=== PATIENT | male | born 1980 | race African-American/Black ===

== ENCOUNTER 2022-03-24 04:29 | Emergency (ER) | payer BC, OTHER, SELFPAY ==
--- NOTE | ~2022-03-24 | XR_ITS ---
EXAMINATION: XR SHOULDER, LEFT CLINICAL INFORMATION: Pain after seizure COMPARISON: None TECHNIQUE: AP external rotation, Grashey, scapular Y, and axillary views of the left shoulder. FINDINGS: There is no visible acute fracture, dislocation. There is loss of glenohumeral joint space with periarticular spurring. The soft tissues are normal. XR/XR shoulder LT min 2V IMPRESSION: Degenerative arthritic changes left shoulder. No visible fracture or dislocation.
--- NOTE | ~2022-03-24 | CT_ITS ---
EXAMINATION: CT HEAD WITHOUT CONTRAST CLINICAL INFORMATION: New onset seizure today. COMPARISON: None TECHNIQUE: Contiguous axial imaging was performed from the skull base to vertex without intravenous administration of contrast. This CT examination was performed using dose optimization techniques as appropriate, variously including the following: *Automated exposure control *Adjustment of mA and/or kV according to patient size (this includes techniques or standardized protocols for targeted exams where dose is matched to indication/reason for exam; i.e. extremities or head) *Use of iterative reconstruction technique DLP: 1108 mGy-cm FINDINGS: No intracranial hemorrhage, tumors or infarcts are noted. The ventricles and sulci are normal in size and configuration. No focal parenchymal lesions of the brain are noted. No abnormal extra-axial fluid collections identified. The orbits and globes are partially included in the image [id number] and are normal in appearance. No significant opacification of the visualized paranasal sinuses, mastoid air cells and middle ear cavities. CT/CT head/brain wo con IMPRESSION: *No acute intracranial abnormalities.
[2022-03-24 04:35] VITALS: BP 100/56; BP 115/70; PULSE 80; PULSE 81; RESP 16; TEMP 36.9; O2SAT 98; O2SAT 99; BMI 30.4
--- NOTE | 2022-03-24 04:37 | ECG_ITS ---
Test Reason : SEIZURES Blood Pressure : / mmHG Vent. Rate : 079 BPM Atrial Rate : 079 BPM P-R Int : 156 ms QRS Dur : 096 ms QT Int : 398 ms P-R-T Axes : 081 048 019 degrees QTc Int : 456 ms Normal sinus rhythm Possible Left atrial enlargement Borderline ECG No previous ECGs available Referred By: Ashley Benjamin Electronically Signed By:LIVIA SORENSEN
[2022-03-24] MEDS: 0.9 % Sodium Chloride 1,000 ML 999 ML IVCONT (04:48)
[2022-03-24 05:06] LABS: Basophils Percent Auto 0.2 % (0-2); Eosinophils Percent Auto 0.1 % (0-4); Hematocrit 42.2 % (42.0-52.0); Hemoglobin 13.8 g/dl (14.0-18.0); Imm Gran Abs Auto 0.07 X10*3/uL (0.00-0.03); Imm Gran Pct Auto 0.8 % (0.0-0.4); Lymphocytes Absolute Auto 0.6 X10*3/uL (1.2-4.9); Lymphocytes Percent Auto 7.4 % (20-40); MANUAL DIFF FLAG NO; Mean Corpuscular HGB Conc 32.7 g/dl (31.0-36.0); Mean Corpuscular Hemoglobin 27.9 pg (27.0-33.0); Mean Corpuscular Volume 85.4 fL (80.0-98.0); Mean Platelet Volume 10.1 fL (9.4-12.4); Monocytes Absolute Auto 0.6 X10*3/uL (0.1-1.2); Monocytes Percent Auto 6.8 % (2-11); Neutrophils Absolute Auto 7.1 x10*3/uL (2.0-8.3); Neutrophils Percent Auto 84.7 % (45-73); Platelet Count 223 X10*3/uL (160-400); Red Blood Count 4.94 X10*6/uL (4.60-5.80); Red Cell Distribution Width 13.2 % (11.0-16.0); White Blood Count 8.4 X10*3/uL (4.8-10.8)
--- NOTE | 2022-03-24 05:08 | ED.NEUROSD ---
HPI - Neuro Symptoms/Deficit General Chief Complaint: Seizure Stated Complaint: seizure Time Seen by Provider: 03/24/22 04:33 Source: EMS Mode of arrival: EMS Limitations: altered mental status History of Present Illness HPI Narrative: Patient comes to the emergency room complaining of a seizure. According to EMS, the reported that the patient had a seizure lasting approximately 5 minutes. The reported that this is the 2nd seizure the patient has ever had, patient is not on any seizure medications. When EMS arrived, patient was postictal, very combative. Patient was given 2 mg of Versed intranasal. EMS reports that they attempted giving 4 mg, but the patient was too combative and push the paramedics hand away, likely only 2 mg were actually administered. On arrival, patient is calm, cooperative, still a bit foggy/postictal, has no complaints. Related Data Previous Rx's Medication Instructions Recorded levetiracetam 500 mg tablet 500 mg PO BID #60 tab 03/24/22 (Keppra) Allergies Allergy/AdvReac Type Severity Reaction Status Date / Time No Known Allergies Allergy Verified 03/24/22 04:37 Review of Systems Review of Systems: Constitutional : No Weight loss, No Fever, No Chills, No Night Sweats, No Fatigue, No Malaise, complaining of feeling foggy ENT/Mouth : No Hearing loss, No Ear Pain, No Nasal Congestion, No Sinus Pain, No Hoarseness, No sore throat, No Rhinorrhea, No Swallowing Difficulty Eyes: No Eye Pain, No Swelling, No Redness, No Foreign Body, No Discharge, No Vision Changes Cardiovascular : No Chest Pain, No SOB, No Dyspnea on Exertion, No Orthopnea, No Edema, No Palpitations Respiratory : No Cough, No Sputum, No Wheezing, No Smoke Exposure, No Dyspnea Gastrointestinal : No Nausea, No Vomiting, No Diarrhea, No Constipation, No abdominal Pain, No Hematochezia, No Melena Genitourinary : no irregular bleeding, No Dysuria, No Urinary Frequency, No Hematuria, No Urinary Incontinence, No Urgency, No Flank Pain, No Urinary Flow Changes, No Hesitancy Musculoskeletal : No joint pain, No Myalgias, No Joint Swelling Skin : No Skin Lesions, No rash Neuro : No Weakness, No Numbness, No Paresthesias, No Loss of Consciousness, No Dizziness, No Headache Psych : No Anxiety/Panic, No Depression, No SI/HI/AH/VH, No Social Issues, Heme/Lymph: No Bruising, No Bleeding,No Lymphadenopathy Endocrine : No Polyuria, No Polydipsia, No Temperature Intolerance [facility] Past Medical History Medical History (Updated 03/24/22 @ 06:08 by Ashley Benjamin MD) Seizures Social History Social History Advance Directives: No Physical Exam Vital Signs: Vital Signs: Last Vital Signs Temp 98.4 F 03/24/22 04:35 Pulse 72 03/24/22 06:45 Resp 12 03/24/22 06:45 BP 109/61 03/24/22 06:45 Pulse Ox 99 03/24/22 06:45 BMI result Body Mass Index 30.4 Const: Other: Appearance: Alert. Oriented X3. No acute distress. Still having trouble remembering things, slightly postictal Eyes: Pupils equal, round and reactive to light. ENT: Pharynx normal. Neck: Normal inspection. Neck supple. No lymph nodes noted. No crepitus CVS: Normal heart rate and rhythm. Pulses normal. Normal S1 and S2 Respiratory: No respiratory distress. Breath sounds normal. No Wheezing. No rales Abdomen: Soft and nontender. No rigidity. No distention. Skin: Skin warm and dry. Normal skin color. Normal skin turgor. Extremities: No lower extremity edema. No Lacerations. No Rash Neuro: Oriented X 3. No motor deficit. No sensory deficit. Moving all extremities. No slurred speech. CN 2 through 12 grossly intact Psych: calm, cooperative, normal affect Course Course Course Narrative: Prior to arrival, patient received 2 mg of intranasal Versed. Here in the emergency room patient is receiving IV fluids, loading dose of [address] Head CT and labs pending. Patient's lactic acid is 5, likely elevated secondary to a seizure. Sepsis not suspected. Patient getting IV fluids. Patient's is at bedside now. She explains that on 11/07/2021 patient had his 1st seizure. Patient was not started on medication. She explains that about a week ago she had an EEG done at [facility], they do not know what the results are. This is The 2nd time the patient has seizures. Patient will be started on Keppra p.o.. Patient instructed to follow-up with Neurology. Please follow-up shoulder x-ray of the left side. Sign-out given to Dr. Villalobos [facility] - Neuro Symptoms/Deficit Lab Data Result diagrams: 03/24/22 04:57 03/24/22 04:57 Labs: Lab Results 03/24/22 03/24/22 03/24/22 Range/Units 04:57 04:57 04:57 WBC 8.4 (4.8-10.8) X10*3/uL RBC 4.94 (4.60-5.80) X10*6/uL Hgb 13.8 L (14.0-18.0) g/dl Hct 42.2 (42.0-52.0) % MCV 85.4 (80.0-98.0) fL MCH 27.9 (27.0-33.0) pg MCHC 32.7 (31.0-36.0) g/dl RDW 13.2 (11.0-16.0) % Plt Count 223 (160-400) X10*3/uL MPV 10.1 (9.4-12.4) fL Immature Gran % (Auto) 0.8 H (0.0-0.4) % Neut % (Auto) 84.7 H (45-73) % Lymph % (Auto) 7.4 L (20-40) % [place] % (Auto) 6.8 (2-11) % Eos % (Auto) 0.1 (0-4) % Baso % (Auto) 0.2 (0-2) % Lymph # (Auto) 0.6 L (1.2-4.9) X10*3/uL [place] # (Auto) 0.6 (0.1-1.2) X10*3/uL Eos # (Auto) 0.0 (0.0-0.4) X10*3/uL Baso # (Auto) 0.0 (0.0-0.2) X10*3/uL Abs Immat Gran (auto) 0.07 H (0.00-0.03) X10*3/uL Absolute Neuts (auto) 7.1 (2.0-8.3) x10*3/uL Absolute Nucleated RBC 0.000 (0.0-0.012) X10*3/uL Nucleated RBC % (auto) 0.0 (0.0-0.2) /100WBC Sodium 134 L (135-145) mmol/L Potassium 4.2 (3.3-5.1) mmol/L Chloride 101 (96-108) mmol/L Carbon Dioxide 22 (22-29) mmol/L Anion Gap 15 (12-20) BUN 12 (9-16) mg/dL Creatinine 1.11 (0.5-1.4) mg/dL Estim Creat Clear Calc 95.9 Estimated GFR > 60 Random Glucose 103 (60-115) mg/dL Lactic Acid 5.2 H* (0.5-2.0) mmol/L Calcium 9.1 (8.4-10.2) mg/dL Total Bilirubin 0.6 (0.0-1.0) mg/dL Direct Bilirubin 0.2 (0.0-0.5) mg/dL AST 24 (5-37) U/L ALT 24 (0-40) U/L Alkaline Phosphatase 55 (39-117) U/L Total Protein 7.0 (6.5-8.0) g/dL Albumin 4.3 (3.5-5.0) g/dL Ethyl Alcohol mg/dL COVID-19 ([facility]) (Negative) COVID-19 Clin Com 03/24/22 03/24/22 Range/Units 04:57 04:57 WBC (4.8-10.8) X10*3/uL RBC (4.60-5.80) X10*6/uL Hgb (14.0-18.0) g/dl Hct (42.0-52.0) % MCV (80.0-98.0) fL MCH (27.0-33.0) pg MCHC (31.0-36.0) g/dl RDW (11.0-16.0) % Plt Count (160-400) X10*3/uL MPV (9.4-12.4) fL Immature Gran % (Auto) (0.0-0.4) % Neut % (Auto) (45-73) % Lymph % (Auto) (20-40) % [place] % (Auto) (2-11) % Eos % (Auto) (0-4) % Baso % (Auto) (0-2) % Lymph # (Auto) (1.2-4.9) X10*3/uL [place] # (Auto) (0.1-1.2) X10*3/uL Eos # (Auto) (0.0-0.4) X10*3/uL Baso # (Auto) (0.0-0.2) X10*3/uL Abs Immat Gran (auto) (0.00-0.03) X10*3/uL Absolute Neuts (auto) (2.0-8.3) x10*3/uL Absolute Nucleated RBC (0.0-0.012) X10*3/uL Nucleated RBC % (auto) (0.0-0.2) /100WBC Sodium (135-145) mmol/L Potassium (3.3-5.1) mmol/L Chloride (96-108) mmol/L Carbon Dioxide (22-29) mmol/L Anion Gap (12-20) BUN (9-16) mg/dL Creatinine (0.5-1.4) mg/dL Estim Creat Clear Calc Estimated GFR Random Glucose (60-115) mg/dL Lactic Acid (0.5-2.0) mmol/L Calcium (8.4-10.2) mg/dL Total Bilirubin (0.0-1.0) mg/dL Direct Bilirubin (0.0-0.5) mg/dL AST (5-37) U/L ALT (0-40) U/L Alkaline Phosphatase (39-117) U/L Total Protein (6.5-8.0) g/dL Albumin (3.5-5.0) g/dL Ethyl Alcohol < 10 mg/dL COVID-19 ([facility]) Negative (Negative) COVID-19 Clin Com See Note Imaging Data CT scan - head: Radiologist's impression: FINDINGS: No intracranial hemorrhage, tumors or infarcts are noted. The ventricles and sulci are normal in size and configuration. No focal parenchymal lesions of the brain are noted. No abnormal extra-axial fluid collections identified. The orbits and globes are partially included in the image [id number] and are normal in appearance. No significant opacification of the visualized paranasal sinuses, mastoid air cells and middle ear cavities. CT/CT head/brain wo con IMPRESSION: *No acute intracranial abnormalities. Discharge Plan Discharge Clinical Impression: Seizures Patient Disposition: Home, Self-Care Instructions: Generalized Tonic Clonic Seizures (ED) Additional Instructions: Do not drive or operate machinery for the next 6 months, or otherwise cleared by Neurology. Please follow-up with your primary care physician tomorrow. If you have any worsening or new symptoms, please return to the emergency room or call 911 Prescriptions: New levetiracetam [Keppra] 500 mg tablet 500 mg PO BID Qty: 60 0RF Referrals: Jose Gerber MD [Physician] - 3 days
[2022-03-24 05:19] LABS: COVID-19 Test Negative (Negative)
[2022-03-24 05:20] LABS: Ethanol < 10 mg/dL; Lactic Acid 5.2 mmol/L (0.5-2.0)
[2022-03-24 05:22] LABS: Alanine Aminotransferase 24 U/L (0-40); Albumin Level 4.3 g/dL (3.5-5.0); Alkaline Phosphatase 55 U/L (39-117); Anion Gap 15 (12-20); Aspartate Amino Transferase 24 U/L (5-37); Bilirubin Direct 0.2 mg/dL (0.0-0.5); Bilirubin Total 0.6 mg/dL (0.0-1.0); Blood Urea Nitrogen 12 mg/dL (9-16); Calcium 9.1 mg/dL (8.4-10.2); Carbon Dioxide 22 mmol/L (22-29); Chloride 101 mmol/L (96-108); Creatinine Clr Calc Pharmacy 95.9; Estimated Glomerular Filt Rate > 60; Glucose Random 103 mg/dL (60-115); Potassium 4.2 mmol/L (3.3-5.1); Sodium 134 mmol/L (135-145)
[2022-03-24] MEDS: levETIRAcetam in NaCl (iso-os) 1,000 MG/100 ML PIGGYBACK 400 MG IV (05:39)
[2022-03-24 06:45] VITALS: BP 109/61; PULSE 72; RESP 12; O2SAT 99
[2022-03-24 07:05] LABS: Reflex Lactate? Lactic Acid Added
== END 2022-03-24 07:30 | disposition home or self-care (01) ==
PROVIDERS: Emergency Medicine; Emergency Provider Emergency Medicine; PCP Internal Medicine
DX: R56.9 Unspecified convulsions (principal); M25.512 Pain in left shoulder; Z20.822 Contact with and (suspected) exposure to COVID-19; Z79.899 Other long term (current) drug therapy
CPT/HCPCS: 36415; 70450; 73030; 80048; 80076; 82077; 83605; 85025; 87635; 93005; 96361; 96374; 99284; J1953

== ENCOUNTER 2024-07-09 15:58 | Outpatient (AMB) | payer OTHER, SELFPAY ==
--- NOTE | 2024-07-09 16:16 | AM.OFFWIN_ITS ---
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 While every effort has been made to ensure accuracy, insulation and flooring assembler errors may have been included. The patient is a 43 year old male who presents to the clinic today with left wrist laceration occurred today. [facility] Medical History (Updated 03/24/22 @ 06:08 by Ashley Benjamin MD) Seizures Review of Systems Const All systems reviewed & are unremarkable except as noted in HPI and below Physical Exam Skin Other: Linear laceration to left forearm, approximately 3 cm in length. Assessment & Plan Assessment & Plan (1) Laceration of arm: Code(s): S41.119A - Laceration without foreign body of unspecified upper arm, initial encounter Qualifiers: Encounter type: initial encounter Laterality: left Qualified Code(s): S41.112A - Laceration without foreign body of left upper arm, initial encounter Plan: Patient requires sutures to repair laceration, unfortunately this provider is unable to perform sutures at this time due to skills check off. Pressure dressing applied to the forearm, patient advised to go to emergency room for suturing or alternate urgent care. Patient pulled up alternate urgent Care on his phone while in the office, and located at a place to go. Plan See above for full details and plan. Coding Level of Care Code Est Pt Level 3 (88018) Diagnoses Laceration of left upper extremity, initial encounter S41.112A Encounter type: initial encounter Laterality: left
== END 2024-07-09 16:10 | disposition home or self-care (01) ==
LOC: HO.HMGWI 15:58
PROVIDERS: PCP Internal Medicine
DX: S41.112A Laceration without foreign body of left upper arm, initial encounter (principal)
CPT/HCPCS: 99213

== ENCOUNTER 2025-03-20 14:02 | Outpatient (AMB) | payer OTHER, SELFPAY ==
[2025-03-20 14:26] VITALS: BP 96/62; PULSE 50; RESP 18; TEMP 36.9; O2SAT 98; BMI 27.1
--- NOTE | 2025-03-20 14:26 | MHC.PC.OV ---
Vital Signs 03/20/25 14:26 Height 5 ft 8 in Weight 178 lb 3.2 oz BMI 27.1 BP 96/62 Blood Pressure Location Lt brachial Position Sitting Respiration 18 Pulse 50 Pulse Source Pulse Oximeter Temp 98.5 F Temp Source Oral Pulse Oximetry (%) 98 Oxygen Delivery Method Room Air Intake Visit Reasons: establish care Intake Note: Patient is a new patient here to establish care. Transferring care from Dr. Rudd at [facility] in [place], [place]. Medical records have been requested and have been received. Warrant Server Required: No Accompanied by: Self / Same As Patient Allergies No Known Allergies Allergy (Verified 03/20/25 14:53) Tobacco use date assessed: 03/20/25 Dental Screening Dental Screen Date: 03/20/25 Did you have a dental visit in the last 12 months?: Yes Did you have a dental problem in the last 6 months where you did not have access to dental care?: No Was dental information given to patient?: Patient has dentist HPI establish care HPI Details Previous PCP: Last visit: over 2 years Last PE: same Specialist: neurologist, Cardiology ([facility])- after one of the seizures, his heart rate was high, October,, he has arrhythmia. His heart rate was low. Past medical history: Back Rash-hyperpigmentation/scaly, Abscess grown on the liver after the apendix was removed. It came back and he had to be hospitalized and surgery was performed. Appendix and the first abscess was 2015, the second one 2016. porferia-in stool. Medications: Family HX: Problem: The patient is a 44-year-old male presenting with the primary reason of establishing care and evaluating multiple chronic health conditions. He describes experiencing generalized tonic-clonic seizures that commenced in July 2023 and have occurred subsequently every two months. These events included a notably high glucose level during a seizure in September 2023 and bradycardia observed on November 14, 2023. He has a significant history of liver abscesses post-appendectomy, first occurring in 2015 and recurred in 2017, both necessitating medical intervention. Dermatological issues include hyperpigmentation and dry, scaly patches on his back, which have not been evaluated by a medical practice assistant. There is a suspicion of porphyria considered due to elevated porphyrin levels noted in genetic and stool testing; however, this was not definitively diagnosed. He has expressed anxiety, manifesting as irritability, and has been prescribed hydroxyzine for symptom management. Discussions regarding his conscripted outcomes of bradycardia during a cardiac evaluation at [facility] resulted in no further follow-up due to patient decision. The patient reports that he say Dr. Moore, who recommended him to Dr. Tim, due to the complexity of his seizures. [place] [facility] [place] [facility] Medical History (Updated 03/22/25 @ 23:26 by TESFAYE Mcdonald) Bradycardia Hx of abdominal abscess Seizures Surgical History Hx of appendectomy Family History Mother Narcolepsy Bipolar disorder Anxiety Difficulty swallowing Esophageal lesion Father No problems noted. 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 1. Little interest or pleasure in doing things: not at all 2. Feeling down, depressed, or hopeless: several days 3. Trouble falling or staying asleep, or sleeping too much: not at all 4. Feeling tired or having little energy: not at all 5. Poor appetite or overeating: not at all 6. Feeling bad about yourself - or that you are a failure or have let yourself or your family down: not at all 7. Trouble concentrating on things, such as reading the newspaper or watching television: not at all 8. Moving or speaking so slowly that other people could have noticed. Or the opposite - being so fidgety or restless that you have been moving around a lot more than usual: not at all 9. Thoughts that you would be better off or of hurting yourself in some way: not at all Total score: 1 Depression Screening Interpretation: Negative Depression Screening Done: Yes 92359 - PHQ-9 Billing: Yes Source: Developed by Drs. Edu Thorne, Cynthia Das, Felipe Granado and colleagues, with an educational alva from [employer]. Thrive Questionnaire Date Thrive assessed: 03/20/25 I am a: Patient What is your living situation today?: I have a steady place to live Within the past 12 months, did the food you bought not last and you didn't have the money to get more?: I choose not to answer this question Within the past 12 months, did you worry whether your food would run out before you got money to buy more?: I choose not to answer this question Do you have trouble paying for medicines?: I choose not to answer this question Do you have trouble getting transportation to medical appointments?: I choose not to answer this question Do you have trouble paying your heating and electricity bill?: I choose not to answer this question Do you have trouble taking care of your child, family member or friend?: I choose not to answer this question Do you have trouble with day-to-day activities such as bathing, preparing meals, shopping, managing finances, etc.?: No Are you currently unemployed and looking for a job?: No Are you interested in more education?: No Please select the resources that you would like help with: None Currently or been in a relationship where the following occur: I choose not to answer THRIVE Score: 0 AUDIT C Alcohol Use Questionnaire (AUDIT-C) 1. How often do you have a drink containing alcohol?: Never Total Score: 0 Score Reviewed/Action Taken: No АЛЕКСАНДР-7 AMB Questionnaire АЛЕКСАНДР-7 Date АЛЕКСАНДР - 7 assessed: 03/20/25 Feeling nervous, anxious, or on edge: 1 = Several days Not being able to stop or control worryin = Several days Worrying too much about different things: 1 = Several days Trouble relaxin = Several days Being so restless that it is hard to sit still: 0 = Not at all Becoming easily annoyed or irritable: 1 = Several days Feeling afraid as if something awful might happen: 0 = Not at all Total АЛЕКСАНДР-7 score (0-4 normal; 5-9 mild; 10-14 moderate; 15-21 severe): 5 Source: Developed by Drs. Edu Thorne, Cynthia Das, Felipe Granado and colleagues, with an educational alva from [employer]. АЛЕКСАНДР-7 Assessment Billing АЛЕКСАНДР-7 Assessment Tool: АЛЕКСАНДР-7 Assessment 13928 Review of Systems Const Denies headache(s) Eyes Denies loss of vision ENT Denies vertigo, Denies dizziness, Denies headache(s) and Denies sore throat Card Denies chest pain, Denies leg edema, Denies lightheadedness and Reports slow heart rate Resp Denies cough, Denies hemoptysis and Denies wheezing GI Denies abdominal pain, Denies melena, Denies constipation, Denies diarrhea and Denies vomiting Denies dysuria, Denies urinary frequency and Denies urinary urgency Musc Denies arthralgias, Denies joint swelling, Denies numbness and Denies tingling Skin/Breast Reports other (hyperpigmentation/scaly appearing areas to back) Neuro Denies Abnormal speech present, Denies behavioral changes, Denies vertigo, Denies dizziness, Denies headache(s), Denies loss of vision, Reports memory loss (forgetful), Denies numbness, Reports convulsions and Denies tingling Psych Reports anxiety, Denies behavioral changes, Denies depression, Reports irritability, Reports memory loss (forgetful) and Denies panic attacks Rafi/Lymph Denies easy bleeding and Denies easy bruising Aller/Immun Denies wheezing Physical exam (Primary Care) Vital Signs: Last Vital Signs Temp 98.5 F 03/20/25 14:26 Pulse 50 03/20/25 14:26 Resp 18 03/20/25 14:26 BP 96/62 03/20/25 14:26 Pulse Ox 98 03/20/25 14:26 Oxygen Delivery Method Room Air 03/20/25 14:26 BMI result Body Mass Index 27.1 Tobacco/Smoking Status: Tobacco use Status Tobacco use date assessed 03/20/25 03/20/25 14:46 Patient Tobacco Use Status Current someday Tobacco ( 03/20/25 14:46 Tobacco Wrap) Tobacco use type 03/20/25 14:46 e-Cigarette/Vaping Use Never Used 03/20/25 14:46 PHQ-9: PHQ-9 Score PHQ-9: Total score 1 03/20/25 15:08 Depression Screening Interpretation: Negative Thrive Assessment: Date of Thrive Assessment Date Thrive assessed 03/20/25 03/20/25 14:28 Currently or been in a relationship where the following occur: I choose not to answer Const General: healthy appearing, no acute distress, alert and awake Nutritional Appearance: well nourished Orientation/consciousness: oriented to person, oriented to place and oriented to time HENMT Ears: external ears normal General nose exam: Normal external nose present Eyes Conjunctivae: conjunctivae normal Sclerae: sclerae normal Pupils: Equal, round and reactive pupils present Neck Neck: Yes no lymphadenopathy and Yes no JVD Thyroid: Thyroid normal Carotids: no bruits Resp Effort & Inspection: normal respiratory effort and not tachypneic Auscultation: no crackles, no rales, no rhonchi and no wheezes Cardio Rate: regular rate Rhythm: regular rhythm Heart sounds: no murmurs and normal S1 and S2 GI Palpation (GI): Soft to palpation, nontender, no hepatomegaly and no splenomegaly Auscultation: normal bowel sounds Skin General skin exam: no rashes or lesions noted and dry skin Neuro General: oriented to person, oriented to place, oriented to time, no focal motor deficits and CN's II-XI intact bilaterally Cranial nerves: Yes Equal, round and reactive pupils present Speech: No Abnormal speech present Gait exam (Neuro): Normal gait present Motor exam (neuro): no tremor noted Extrem Right upper extremity: full ROM Left upper extremity: full ROM Right lower extremity: full ROM; no edema Left lower extremity: full ROM; no edema Psych Mental Status: mental status grossly normal Speech and movement: Normal speech and movement present Affect: normal affect Attitude: cooperative Thought process: Normal thought process present Coding Level of Care Code New Pt Level 4 (12802) Diagnoses Seizures R56.9 Hyperglycemia R73.9 Anxiety F41.9 Bradycardia R00.1 Hyperpigmentation L81.9 Additional Codes АЛЕКСАНДР-7 Assessment Billing - АЛЕКСАНДР-7 Assessment Tool: АЛЕКСАНДР-7 Assessment 03299 ([id number]) PHQ-9 - 91804 - PHQ-9 Billing: Yes ([id number]) Time Spent (min) 41 Assessment & Plan Assessment & Plan (1) Seizures: Code(s): R56.9 - Unspecified convulsions Category: Medical (2) Hyperglycemia: Code(s): R73.9 - Hyperglycemia, unspecified Category: Medical (3) Anxiety: Code(s): F41.9 - Anxiety disorder, unspecified Category: Medical (4) Bradycardia: Code(s): R00.1 - Bradycardia, unspecified Category: Medical (5) Hyperpigmentation: Code(s): L81.9 - Disorder of pigmentation, unspecified Category: Medical Plan The patient will maintain a diary to track and document seizure episodes, including frequency and potential triggers, with ongoing evaluation of seizure control. For anxiety management, hydroxyzine at a dose of 50 mg is advised, taken initially at night due to sedative effects. Discussion of benefit and necessity of cognitive-behavioral therapy or psychological evaluation is suggested to support long-term anxiety management. Given ongoing skin concerns, a referral to dermatology is recommended to evaluate the hyperpigmentation and scaly skin conditions. Routine blood tests will be scheduled prior to the next visit to monitor health status, specifically assessing any recurrence or progression of noted conditions. Cardiological review indicated a single incident of bradycardia without ongoing issues; no recurrent evaluation is deemed necessary at this stage. Suspected porphyria continues to be assessed within the broader context of the patient's symptoms. Patient was informed and verbally consented to the use of an ambient scribe for clinic note documentation during this visit. Orders: Orders Comprehensive [place]. Panel Fast 03/20/25 R56.9 - Unspecified convulsions, R73.9 - Hyperglycemia, unspecified UA CC w/rflx Micro + Cult 03/20/25 R56.9 - Unspecified convulsions, R73.9 - Hyperglycemia, unspecified Glucose Fasting 03/20/25 R56.9 - Unspecified convulsions, R73.9 - Hyperglycemia, unspecified Complete Blood Count Auto Diff 03/20/25 R56.9 - Unspecified convulsions, R73.9 - Hyperglycemia, unspecified Lipid Panel 03/20/25 R56.9 - Unspecified convulsions, R73.9 - Hyperglycemia, unspecified TSH reflex Free T4 03/20/25 R56.9 - Unspecified convulsions, R73.9 - Hyperglycemia, unspecified Vitamin D 25-OH Total 03/20/25 R56.9 - Unspecified convulsions, R73.9 - Hyperglycemia, unspecified Hemoglobin A1c 03/20/25 R56.9 - Unspecified convulsions, R73.9 - Hyperglycemia, unspecified Referrals Dermatology Referral L81.9 - Disorder of pigmentation, unspecified, R21 - Rash and other nonspecific skin eruption Psychology Referral F41.9 - Anxiety disorder, unspecified Medications: New hydroxyzine HCl 50 mg PO BID PRN 30 tabs 1RF anxiety Discontinued levetiracetam (Keppra) Discontinued Reason: Patient no longer taking 500 mg PO BID 60 tabs 0RF
--- OUTSIDE RECORDS SUMMARY | 2025-03-20 14:44 | XMS_ITS | Encounter Summary ---
Author Organization [facility] Address [address] [place] [address] Care Team Providers Care Ski Technician Name Role Phone Toby Edouard DO Primary Care Provider Encounter Details Date Type Department Care Team (Late st Contact Info) Description 03/09/2025 Patient Outreach Internal Medicine - [place] [address] [place] [phone] Toby Edouard DO [address] [facility] [place] [phone] Social History Tobacco Use Types Packs/Day Years Used Date Smoking Tobacco: Never Assessed Sex and Gender Information Value Date Recorded Sex Assigned at Male 03/02/2025 9:47 AM EDT Legal Sex Male 4:41 AM EST Gender Identity Male 03/02/2025 9:47 AM EDT Sexual Orientation Straight 03/02/2025 9: 47 AM EDT documented as of this encounter Plan of Treatment Upcoming Encounters Date Type Department Care Team (Late st Contact Info) Description 05/04/2025 10:40 AM EDT Office Visit Neurostroke - [place] [address] [place] [phone] Sigirfedo Tim MD [address] [place], [place] [id number] 05/19/2025 10:30 AM EDT Office Visit [facility] [place] [address] [place] [address] Gil Pineda MD [address] [place] [address] documented as of this encounter Visit Diagnoses Not on filedocumented in this encounter Care Teams Ski Technician Relationship Specialty Start Date End Date Toby Edouard DO [address] [facility] [place] [phone] PCP - General Internal Medicine 12/22/24 documented as of this encounter
--- OUTSIDE RECORDS SUMMARY | 2025-03-20 14:45 | XMS_ITS | Clinical Summary ---
Author Organization [facility] Address [address] [place] [address] Phone Care Team Providers Care Named Account Executive Name Role Phone Toby Edouard Primary Care Provider Allergies No known active allergies Medications LORazepam (ATIVAN) 0.5 mg tablet Sig 1 tab po prn seizure > 5 minutes, can repeat X1 in 24 hours 4 Active zonisamide (ZONEGRAN) 100 mg capsuleIndicat ions:Seizure (CMS/[facility]ER[facility] V24, CMS/[facility] V28) Take 2 capsules (200 mg total) by mouth 2 (two) times a day. 120 capsule 2 5 026 Active B complex-vitami n C tablet Take 1 tablet by mouth 1 (one) time each day. 5 026 Active cenobamate (Xcopri Titration Pack) 12.5 mg (14)- 25 mg (14) tablets,dose pack Take 1 tablet (12.5 mg) by mouth one (1) time each day for 14 days. Then take 1 tablet (25 mg) by mouth one (1) time each day for 14 days. 28 tablet 5 Active zonisamide (ZONEGRAN) 100 mg capsule Take 2 capsules (200 mg total) by mouth 2 (two) times a day. 60 capsule 2 5 025 Discontinued Active Problems Problem Noted Date Diagnosed Date Breakthrough seizure (CMS/HCC V24, CMS/FORMERLY [facility] V28) 03/02/2025 Seizure ([facility] V24, [facility] V28) 02/20/2025 Encounters Date Type Department Care Team Description 03/12/2025 Telephone Neurostroke [facility] [address] [place] [phone] Nataliia Jimenez, SPOOLER OPERATOR AUTOMATIC post EMU call 03/10/2025 2:20 PM EDT - 03/10/2025 11:59 PM EDT Hospital Encounter [facility] MRI [address] [place] [address] Seizure ([facility] V24, [facility] V28) Discharge Disposition: Home or Self Care 03/09/2025 Telephone Internal Medicine [facility] [address] [place] [address] Toby Edouard DO Transitional Care Management 03/09/2025 Patient Outreach Internal Medicine - [place] [address] [place] [address] Toby Edouard DO 03/02/2025 9:51 AM EDT - 03/06/2025 1:13 PM EDT Hospital Encounter [facility] [address] [place] [address] Gallito Orozco, Britton Bowser MD Discharge Disposition: Home or Self Care 02/26/2025 Telephone Neurostroke - [place] [address] [place] [phone] Nataliia Jimenez NP pre EMU call 02/19/2025 11:00 AM EDT Office Visit Neurostroke [facility] [address] [place] [phone] Sigifredo Tim MD Seizure ([facility] V24, [facility] V28) 01/19/2025 8:00 AM EST Office Visit [facility] [address] [place] [address] Gil Pineda MD Seizure ([facility] V24, [facility] V28) (Primary Dx) 12/22/2024 4:45 AM EST - 12/22/2024 8:59 AM EST Emergency [facility] Emergency [address] [place] [address] Maverick Salvador MD Cheng, Ting Ho Danny, Breakthrough seizure ([facility] V24, [facility] V28) (Primary Dx) Discharge Disposition: Home or Self Care from Last 3 Months Medical History Medical History Date Comments Seizures ([facility] V24, [facility] V28) Social History Tobacco Use Types Packs/Day Years Used Date Smoking Tobacco: Never Assessed Sex and Gender Information Value Date Recorded Sex Assigned at Male 03/02/2025 9:47 AM EDT Legal Sex Male 4:41 AM EST Gender Identity Male 03/02/2025 9:47 AM EDT Sexual Orientation Straight 03/02/2025 9: 47 AM EDT Obstetrics History Last Filed Vital Signs Vital Sign Reading Time Taken Comments Blood Pressure 104/71 03/06/2025 7:48 AM EDT Pulse 49 03/06/2025 7:48 AM EDT Temperature 36.6 ??C (97.9 ??F) 03/06/2025 7:48 AM ED T Respiratory Rate 18 03/06/2025 7:48 AM EDT Oxygen Saturation 99% 03/06/2025 7:48 AM EDT Inhaled Oxygen Concentration - - Weight 85.3 kg (188 lb) 01/19/2025 8:13 AM EST Height 170.2 cm (5' 7 ) 01/19/2025 8:13 AM EST Body Mass Index 29.44 01/19/2025 8:13 AM EST Plan of Treatment Upcoming Encounters Date Type Department Care Team (Late st Contact Info) Description 05/04/2025 10:40 AM EDT Office Visit Neurostroke - [place] [address] [place] [phone] Sigifredo Tim MD [address] [place], [place] [phone] 05/19/2025 10:30 AM EDT Office Visit [facility] [address] [place] [address] Gil Pineda MD [address] [place] [address] Health Maintenance Due Date Last Done Comments Hepatitis A Vaccines (1 of 2 - Risk 2-dose series) 1999 Hepatitis B Vaccines (1 of 3 - 19+ 3-dose series) 1999 COVID-19 Vaccine (2023-2 5 season) 2024 Cholesterol Screening (Lipid Panel) 12/22/2024 Depression Screening 12/22/2024 HIV Screening 12/22/2024 Hepatitis C Screening 12/22/2024 Social Influencers of Health Screening 12/22/2024 Influenza Vaccine (Season Ended) 2025 DTaP,Tdap,and Td Vaccines (3 - Td or Tdap) 07/09/2034 07/09/2024, 09/11/2016 HIB Vaccines Aged Out No longer eligi ble based on patient's age to complete this topic HPV Vaccines Aged Out No longer eligi ble based on patient's age to complete this topic IPV Vaccines Aged Out No longer eligi ble based on patient's age to complete this topic MMR Vaccines Aged Out No longer eligi ble based on patient's age to complete this topic Meningococcal ACWY Vaccine Aged Out N o longer eligible based on patient's age to complete this topic Meningococcal B Vaccine Aged Out No l onger eligible based on patient's age to complete this topic Pneumococcal Vaccine: Pediatrics (0 to 5 Years) and At-Risk Patients (6 to 64 Years) Aged Out No longer eligible b ased on patient's age to complete this topic RSV Immunization Patients Under 20 months Aged Out No longer eligible b ased on patient's age to complete this topic Varicella Vaccines Aged Out No longer eligible based on patient's age to complete this topic Procedures Procedure Name Priority Date/Time Associated Diagnosis Comments MR BRAIN WO AND W CONTRAST Routine 03/10/2025 3:48 PM EDT Seizure (CMS/HCC V24, CMS/[facility] V28) CONTINUOUS EEG Routine 03/06/2025 6:34 AM EDT CONTINUOUS EEG Routine 03/06/2025 6:31 AM EDT CONTINUOUS EEG Routine 03/05/2025 8:56 AM EDT CONTINUOUS EEG Routine 03/04/2025 6:44 AM EDT CONTINUOUS EEG Routine 03/03/2025 8:12 AM EDT ZONISAMIDE LEVEL STAT 03/02/2025 10:5 5 AM EDT COMPREHENSIVE METABOLIC PANEL Routine 03/02/2025 10:55 AM EDT SALICYLATE LEVEL STAT 12/22/2024 5:17 AM EST ACETAMINOPHEN LEVEL STAT 12/22/2024 5 :17 AM EST ETHANOL STAT 12/22/2024 5:17 AM EST CBC WITH AUTO DIFFERENTIAL STAT 12/22/2024 5:17 AM EST COMPREHENSIVE METABOLIC PANEL STAT 12/22/2024 5:17 AM EST PROLACTIN STAT 12/22/2024 5:17 AM EST MAGNESIUM STAT 12/22/2024 5:17 AM EST CBC AND DIFFERENTIAL STAT 12/22/2024 5:17 AM EST ECG 12-LEAD STAT 12/22/2024 4:59 AM EST ECG ANNOTATED 12/22/2024 from Last 3 Months Results * MR Brain wo and w Contrast (03/10/2025 3:48 PM EDT) Anatomical Region Laterality Modality Head and Neck Magnetic Resonan ce 03/17/2025 10:2 4 AM EDT Impressions 03/17/2025 10:29 AM EDT Normal brain MRI without and with contrast. -------- FINAL REPORT -------- Dictated By: EDDY YANG Dictated Date: 03/17/2025 10:24 ET Assigned Physician: EDDY YANG Reviewed and Electronically Signed By: EDDY YANG Signed Date: 03/17/2025 10:29 ET Workstation ID: [id number] Transcribed By: Self Edit Transcribed Date: 03/17/2025 10:24 ET Narrative 03/17/2025 10:29 AM EDT PROCEDURE: Brain MRI INDICATION: Seizures TECHNIQUE: Multiplanar, multisequence MRI of the brain without and with contrast. ??17 mL Dotarem injected intravenously without complication from a 20 mL vial with the remainder discarded COMPARISON: ??CT 08/16/2024 FINDINGS: No acute infarct, mass effect, or intracranial hemorrhage. Sella and foramen magnum are normal. Brain parenchyma is normal in signal. ??No abnormal intracranial enhancement or susceptibility artifact. The hippocampi are symmetric in signal and morphology. ??No focal cortical dysplasia, rodriguez matter heterotopia, or other migrational abnormalities detected. Major intracranial arterial flow voids are normal. Ventricles, sulci, and cisterns are normal in size and configuration. ??No hydrocephalus. Scattered mucosal thickening throughout the sinuses with right inferior maxillary sinus retention cyst. Trace right mastoid fluid. Orbits and extracranial soft tissues are normal. Calvarium is normal. Procedure Note Eddy Yang MD - 03/17/2025 PROCEDURE: Brain MRI INDICATION: Seizures TECHNIQUE: Multiplanar, multisequence MRI of the brain without and withcontrast. 17 mL Dotarem injected intravenously without complication froma 20 mL vial with the remainder discarded COMPARISON: CT 08/16/2024 FINDINGS: No acute infarct, mass effect, or intracranial hemorrhage. Sella and foramen magnum are normal. Brain parenchyma is normal in signal. No abnormal intracranialenhancement or susceptibility artifact. The hippocampi are symmetric in signal and morphology. No focal corticaldysplasia, rodriguez matter heterotopia, or other migrational abnormalitiesdetected. Major intracranial arterial flow voids are normal. Ventricles, sulci, and cisterns are normal in size and configuration. Nohydrocephalus. Scattered mucosal thickening throughout the sinuses with right inferiormaxillary sinus retention cyst. Trace right mastoid fluid. Orbits and extracranial soft tissues are normal. Calvarium is normal. IMPRESSION: Normal brain MRI without and with contrast. -------- FINAL REPORT -------- Dictated By: EDDY YANG Dictated Date: 03/17/2025 10:24 ET Assigned Physician: EDDY YANG Reviewed and Electronically Signed By: EDDY YANG Signed Date: 03/17/2025 10:29 ET Workstation ID: [id number] Transcribed By: Self Edit Transcribed Date: 03/17/2025 10:24 ET Sigifredo Tim MD IMG MRI PROCEDURES Final Result * Continuous EEG (03/06/2025 6:34 AM EDT) Narrative [facility] - 03/04/2025 6:42 PM EDT Britton Orozco MD ? 03/05/2025 ??6:43 PM Epilepsy Monitoring Unit (EMU) continuous Video Electroencephalography - ??Interim report EMU monitoring day: ??3 Study start date, time: ??03/04/2025; 07:00 Study end date, time: ?? 03/05/2025; 07:00 Total duration: ?? 24 hours ?? Clinical Information History: Richard Madsen is a 44 y.o. 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 Sedation: Antiseizure medication: Medications: Current Facility-Administered Medications: ??B complex-vitamin C tablet 1 tablet, 1 tablet, oral, Daily, Nataliia Jimenez NP, 1 tablet at 03/05/25 0902 ??diphenhydrAMINE (BENADRYL) capsule 25 mg, 25 mg, oral, Nightly PRN, Nataliia Jimenez NP ??LORazepam (ATIVAN) injection 1 mg, 1 mg, intravenous, q2h PRN, Nataliia Jimenez NP ??Insert peripheral IV, , , Once AND Maintain IV access, , , Until discontinued AND Saline lock IV, , , Once AND sodium chloride 0.9 % flush 10 mL, 10 mL, intravenous, BID, 10 mL at 03/05/25 0902 AND sodium chloride 0.9 % flush 10 mL, 10 mL, intravenous, PRN, Nataliia Jimenez NP ??zonisamide (ZONEGRAN) capsule 200 mg, 200 mg, oral, BID, Gumaro Jones, SPOOLER OPERATOR AUTOMATIC, 200 mg at 03/05/25 1317 Recording Techniques Instrumentation: ??A digital EEG was performed using the standard international 10-20 electrode placement and single lead EKG electrode with a sampling rate of 200 samples per second/per channel, at impedance levels less than 10 K Ohms. Montages: Standard 10-20 system montages Type of Study: Continuous video EEG monitoring Conditions of Recording: Awake - drowsy - sleep ?? Results Background: The record was well organized. The waking EEG was characterized by a symmetrical, well-formed and modulated 8 Hz posterior dominant rhythm, with medium amplitude (20-70 uV) and reactive to eye opening. The background over the rest of the head consisted of a mixture of alpha and beta frequencies. Sleep: During drowsiness, the alpha rhythm attenuated and diffuse background slowing appeared. Stage 2 sleep architecture was not seen Activation Procedures: Hyperventilation: diffuse slowing Photic Simulation: no changes Clinical events: none Heart Rate: sinus rhythm Interictal findings: Frequent intermittent polymorphic delta and theta slowing was seen in the right and left frontotemporal regions. Epileptiform discharges: Frequent right frontotemporal (F8/T4 > F4) sharp waves seen Occasional left temporal sharp waves Classification of the findings: ?? 1. Sharp wave, right > left temporal sharp waves ??- frequent 2. Intermittent polymorphic slowing, delta and theta, bilateral temporal Impression This is an abnormal continuous video EEG study - Findings are indicative of significant right > left temporal focal cerebral dysfunction as well as cortical irritability in that region, with risk for seizures. -No clinical or electrographic seizures captured - No target events reported so far Compared to yesterday's EEG: Unchanged record. ??Bitemporal epileptiform discharges seen ?? This video EEG record was continuously monitored by remote EEG monitoring service. Britton Orozco MD Epileptologist/ staff neurologist [facility] us Nataliia Jimenez NP NEUROLOGY ORDERABLES Edit ed Result - Final [facility] * Continuous EEG (03/06/2025 6:31 AM EDT) Narrative [facility] - 03/06/2025 1:13 PM EDT Britton Orozco MD ? 03/06/2025 ??4:16 PM Epilepsy Monitoring Unit (EMU) continuous Video Electroencephalography -final report EMU monitoring day: ??5 Study start date, time: ??03/06/2025; 07:00 Study end date, time: ?? 03/06/2025; 10:33 PM Total duration: ? 3 hours and 33 minutes Clinical Information History: Richard Madsen is a 44 y.o. 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 Current Outpatient Medications: ??B complex-vitamin C tablet, Take 1 tablet by mouth 1 (one) time each day., Disp: , Rfl: ??cenobamate (Xcopri Titration Pack) 12.5 mg (14)- 25 mg (14) tablets,dose pack, Take 1 tablet (12.5 mg) by mouth one (1) time each day for 14 days. Then take 1 tablet (25 mg) by mouth one (1) time each day for 14 days., Disp: 28 tablet, Rfl: 0 ??LORazepam (ATIVAN) 0.5 mg tablet, Sig 1 tab po prn seizure > 5 minutes, can repeat X1 in 24 hours, Disp: , Rfl: ??zonisamide (ZONEGRAN) 100 mg capsule, Take 2 capsules (200 mg total) by mouth 2 (two) times a day., Disp: 120 capsule, Rfl: 2 Recording Techniques Instrumentation: ??A digital EEG was performed using the standard international 10-20 electrode placement and single lead EKG electrode with a sampling rate of 200 samples per second/per channel, at impedance levels less than 10 K Ohms. Montages: Standard 10-20 system montages Type of Study: Continuous video EEG monitoring Conditions of Recording: Awake - drowsy - sleep ?? Results Background: The record was well organized. The waking EEG was characterized by a symmetrical, well-formed and modulated 8 Hz posterior dominant rhythm, with medium amplitude (20-70 uV) and reactive to eye opening. The background over the rest of the head consisted of a mixture of alpha and beta frequencies. Sleep: During drowsiness, the alpha rhythm attenuated and diffuse background slowing appeared. Stage 2 sleep architecture was not seen Activation Procedures: Hyperventilation: diffuse slowing Photic Simulation: no changes Clinical events: none Heart Rate: sinus rhythm Interictal findings: Frequent intermittent polymorphic delta and theta slowing was seen in the right and left frontotemporal regions. Epileptiform discharges: Frequent right frontotemporal (F8/T4 > F4) sharp waves seen Occasional left temporal sharp waves Classification of the findings: ?? 1. Sharp wave, right > left temporal sharp waves ??- frequent 2. Intermittent polymorphic slowing, delta and theta, bilateral temporal Impression This is an abnormal continuous video EEG study - Findings are indicative of significant right > left temporal focal cerebral dysfunction as well as cortical irritability in that region, with risk for seizures. - No clinical or electrographic seizures seen - No target events reported or captured during these EMU stay -Patient discharged in stable condition today - Home dose antiseizure medication zonisamide restarted Second antiseizure medication Xcopri added to seizure medication regimen given abnormal EEG and seizures as outpatient This video EEG record was continuously monitored by remote EEG monitoring service. Britton Orozco MD Epileptologist/ staff neurologist [facility] us Nataliia Jimenez SPOOLER OPERATOR AUTOMATIC NEUROLOGY ORDERABLES Bianca dave Result [facility] * Continuous EEG (03/05/2025 8:56 AM EDT) Narrative [facility] - 03/03/2025 11:35 AM EDT Britton Orozco MD ? 03/05/2025 ??6:40 PM Epilepsy Monitoring Unit (EMU) continuous Video Electroencephalography - ??Interim report EMU monitoring day: ??2 ?? Study start date, time: ??03/03/2025; 07:00 Study end date, time: ?? 03/04/2025; 07:00 Total duration: ?? 24 hours ?? Clinical Information History: Richard Madsen is a 44 y.o. 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 Sedation: Antiseizure medication: Medications: Current Facility-Administered Medications: ??B complex-vitamin C tablet 1 tablet, 1 tablet, oral, Daily, Nataliia Jimenez NP, 1 tablet at 03/05/[address] ??diphenhydrAMINE (BENADRYL) capsule 25 mg, 25 mg, oral, Nightly PRN, Nataliia Jimenez, SPOOLER OPERATOR AUTOMATIC ??LORazepam (ATIVAN) injection 1 mg, 1 mg, intravenous, q2h PRN, Nataliia Jimenez NP ??Insert peripheral IV, , , Once AND Maintain IV access, , , Until discontinued AND Saline lock IV, , , Once AND sodium chloride 0.9 % flush 10 mL, 10 mL, intravenous, BID, 10 mL at 03/05/259[address] AND sodium chloride 0.9 % flush 10 mL, 10 mL, intravenous, PRN, Nataliia Jimenez NP Recording Techniques Instrumentation: ??A digital EEG was performed using the standard international 10-20 electrode placement and single lead EKG electrode with a sampling rate of 200 samples per second/per channel, at impedance levels less than 10 K Ohms. Montages: Standard 10-20 system montages Type of Study: Continuous video EEG monitoring Conditions of Recording: Awake - drowsy - sleep ?? Results Background: The record was well organized. The waking EEG was characterized by a symmetrical, well-formed and modulated 8 Hz posterior dominant rhythm, with medium amplitude (20-70 uV) and reactive to eye opening. The background over the rest of the head consisted of a mixture of alpha and beta frequencies. Sleep: During drowsiness, the alpha rhythm attenuated and diffuse background slowing appeared. Stage 2 sleep architecture was not seen Activation Procedures: Hyperventilation: diffuse slowing Photic Simulation: no changes Clinical events: none Heart Rate: sinus rhythm Interictal findings: Frequent intermittent polymorphic delta and theta slowing was seen in the right and left frontotemporal regions. Epileptiform discharges: Frequent right frontotemporal (F8/T4 > F4) sharp waves seen Occasional left temporal sharp waves Classification of the findings: ?? 1. Sharp wave, right > left temporal sharp waves ??- frequent 2. Intermittent polymorphic slowing, delta and theta, bilateral temporal Impression This is an abnormal continuous video EEG study - Findings are indicative of significant right > left temporal focal cerebral dysfunction as well as cortical irritability in that region, with risk for seizures. -No clinical or electrographic seizures captured - No target events reported so far ?? This video EEG record was continuously monitored by remote EEG monitoring service. Britton Orozco MD Epileptologist/ staff neurologist [facility] us Nataliia Jimenez NP NEUROLOGY ORDERABLES Bianca jolie Result [facility] * Continuous EEG (03/04/2025 6:44 AM EDT) Narrative [facility] - 03/05/2025 7:30 PM EDT Britton Orozco MD ? 03/06/2025 ??4:15 PM Epilepsy Monitoring Unit (EMU) continuous Video Electroencephalography - ??Interim report EMU monitoring day: ??4 Study start date, time: ??03/05/2025; 07:00 Study end date, time: ?? 03/06/2025; 07:00 Total duration: ?? 24 hours ?? Clinical Information History: Richard Madsen is a 44 y.o. 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 Sedation: Antiseizure medication: Medications: Current Facility-Administered Medications: ??B complex-vitamin C tablet 1 tablet, 1 tablet, oral, Daily, Nataliia Jimenez NP, 1 tablet at 03/05/25 0902 ??diphenhydrAMINE (BENADRYL) capsule 25 mg, 25 mg, oral, Nightly PRN, Nataliia Jimenez NP ??LORazepam (ATIVAN) injection 1 mg, 1 mg, intravenous, q2h PRN, Nataliia Jimenez NP ??Insert peripheral IV, , , Once AND Maintain IV access, , , Until discontinued AND Saline lock IV, , , Once AND sodium chloride 0.9 % flush 10 mL, 10 mL, intravenous, BID, 10 mL at 03/05/25 0902 AND sodium chloride 0.9 % flush 10 mL, 10 mL, intravenous, PRN, Nataliia Jimenez NP ??zonisamide (ZONEGRAN) capsule 200 mg, 200 mg, oral, BID, Gumaro Jones, ANNA, 200 mg at 03/05/25 1317 Recording Techniques Instrumentation: ??A digital EEG was performed using the standard international 10-20 electrode placement and single lead EKG electrode with a sampling rate of 200 samples per second/per channel, at impedance levels less than 10 K Ohms. Montages: Standard 10-20 system montages Type of Study: Continuous video EEG monitoring Conditions of Recording: Awake - drowsy - sleep ?? Results Background: The record was well organized. The waking EEG was characterized by a symmetrical, well-formed and modulated 8 Hz posterior dominant rhythm, with medium amplitude (20-70 uV) and reactive to eye opening. The background over the rest of the head consisted of a mixture of alpha and beta frequencies. Sleep: During drowsiness, the alpha rhythm attenuated and diffuse background slowing appeared. Stage 2 sleep architecture was not seen Activation Procedures: Hyperventilation: diffuse slowing Photic Simulation: no changes Clinical events: none Heart Rate: sinus rhythm Interictal findings: Frequent intermittent polymorphic delta and theta slowing was seen in the right and left frontotemporal regions. Epileptiform discharges: Frequent right frontotemporal (F8/T4 > F4) sharp waves seen Occasional left temporal sharp waves Classification of the findings: ?? 1. Sharp wave, right > left temporal sharp waves ??- frequent 2. Intermittent polymorphic slowing, delta and theta, bilateral temporal Impression This is an abnormal continuous video EEG study - Findings are indicative of significant right > left temporal focal cerebral dysfunction as well as cortical irritability in that region, with risk for seizures. -No clinical or electrographic seizures captured - No target events reported so far Compared to yesterday's EEG: Epileptiform discharge burden has decreased after restarting home dose antiseizure medication. - No clinical events or target events - Anticipate discharge tomorrow This video EEG record was continuously monitored by remote EEG monitoring service. Britton Orozco MD Epileptologist/ staff neurologist [facility] us Nataliia Jimenez NP NEUROLOGY ORDERABLES Bianca l Result [facility] * Continuous EEG (03/03/2025 8:12 AM EDT) Narrative [facility] - 03/02/2025 11:15 PM EDT Britton Orozco MD ? 03/03/2025 12:03 PM Epilepsy Monitoring Unit (EMU) continuous Video Electroencephalography - ??Interim report EMU monitoring day: ??1 ?? Study start date, time: ??03/02/2025; 10.59 AM Study end date, time: ?? 03/03/2025; 07:00 Total duration: ??21 hours ?? Clinical Information History: Richard Madsen is a 44 y.o. 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 Sedation: Antiseizure medication: Medications: Current Facility-Administered Medications: ??B complex-vitamin C tablet 1 tablet, 1 tablet, oral, Daily, Nataliia Jimenez NP ??LORazepam (ATIVAN) injection 1 mg, 1 mg, intravenous, q2h PRN, Nataliia Jimenez NP ??Insert peripheral IV, , , Once AND Maintain IV access, , , Until discontinued AND Saline lock IV, , , Once AND sodium chloride 0.9 % flush 10 mL, 10 mL, intravenous, BID, 10 mL at 03/02/25 5718 AND sodium chloride 0.9 % flush 10 mL, 10 mL, intravenous, PRN, Nataliia Jimenez NP Recording Techniques Instrumentation: ??A digital EEG was performed using the standard international 10-20 electrode placement and single lead EKG electrode with a sampling rate of 200 samples per second/per channel, at impedance levels less than 10 K Ohms. Montages: Standard 10-20 system montages Type of Study: Continuous video EEG monitoring Conditions of Recording: Awake - drowsy - sleep ?? Results Background: The record was well organized. The waking EEG was characterized by a symmetrical, well-formed and modulated 8 Hz posterior dominant rhythm, with medium amplitude (20-70 uV) and reactive to eye opening. The background over the rest of the head consisted of a mixture of alpha and beta frequencies. Sleep: During drowsiness, the alpha rhythm attenuated and diffuse background slowing appeared. Stage 2 sleep architecture was not seen Activation Procedures: Hyperventilation: diffuse slowing Photic Simulation: no changes Clinical events: none Heart Rate: sinus rhythm Interictal findings: Frequent intermittent polymorphic delta and theta slowing was seen in the right frontotemporal region. Epileptiform discharges: Frequent right frontotemporal (F8/T4 > F4) sharp waves seen Classification of the findings: ?? 1. Sharp wave, right temporal (F8/T4) sharp waves ??- frequent 2. Intermittent polymorphic slowing, delta and theta, right > left, temporal Impression This is an abnormal continuous video EEG study - Findings are indicative of significant right > left temporal focal cerebral dysfunction as well as cortical irritability in that region, with risk for seizures. This video EEG record was continuously monitored by remote EEG monitoring service. Britton Orozco MD Epileptologist/ staff neurologist [facility] us Nataliia Jimenez SPOOLER OPERATOR AUTOMATIC NEUROLOGY ORDERABLES Bianca l Result NATUS * Zonisamide level (03/02/2025 10:55 AM EDT) Zonisamide (Zonegran) 19 10 - 40 ug/mL 03/06/2025 10:44 AM EDT [facility] Comment: Zonisamide toxic level: ??>100 ug/mL If applicable, any drug confirmation testing reported here was developed and the performance characteristics determined by [facility]. This confirmation testing has not been cleared or approved by the FDA. The laboratory is regulated under CLIA as qualified to perform high-complexity testing. This test is used for patient testing purposes. It should not be regarded as investigational or for research. Test performed at [facility], [address] , [place], [place] ??[address] ? [phone] Jonna Cordon MD, PhD - [facility] Blood Venous blood specimen / Unknown Venipuncture / Unknown 03/02/2025 10:55 AM EDT 03/02/2025 11:20 AM EDT us Nataliia Jimenez SPOOLER OPERATOR AUTOMATIC LAB BLOOD ORDERABLES Bianca jolie Result [address] [address] [address] * (ABNORMAL) Comprehensive metabolic panel (03/02/2025 10:55 AM EDT) Only the most recent of2 resultswithin the time period is included. Pathologist [facility] Sodium 140 135 - 145 mmol/L LAB CHEMISTRY METHOD 03/02/2025 11:53 AM EDT [facility] Potassium 3.5 3.5 - 5.1 mmol/L LAB CHEMISTRY METHOD 03/02/2025 11:53 AM EDT [facility] Chloride 108(H) 98 - 107 mmol/L LAB CHEMISTRY METHOD 03/02/2025 11:53 AM EDT [facility] CO2 25 24 - 32 mmol/L LAB CHEMISTRY METHOD 03/02/2025 11:53 AM EDT [facility] Anion Gap 7 5 - 14 LAB CHEMISTRY METHOD 03/02/2025 11:53 AM EDT [facility] Glucose 88 70 - 199 mg/dL LAB CHEMISTRY METHOD 03/02/2025 11:53 AM EDT [facility] BUN 16 9 - 20 mg/dL LAB CHEMISTRY METHOD 03/02/2025 11:53 AM EDT [facility] Creatinine 1.30 0.70 - 1.30 mg/dL LAB CHEMISTRY METHOD 03/02/2025 11:53 AM EDT [facility] eGFR 69 >=60 mL/min/1. 73m2 LAB CHEMISTRY METHOD 03/02/2025 11:53 AM EDT [facility] Comment:Calculation based on the??Chronic Kidney Disease Epidemiology Collaboration (CKD-EPI) equation refit??without adjustment for race. BUN/Creatinine Ratio 12.3 12.0 - 20.0 LAB CHEMISTRY METHOD 03/02/2025 11:53 AM EDT [facility] Calcium 9.1 8.4 - 10.2 mg/dL LAB CHEMISTRY METHOD 03/02/2025 11:53 AM EDT [facility] AST (SGOT) 18 5 - 40 unit/L LAB CHEMISTRY METHOD 03/02/2025 11:53 AM EDT [facility] ALT (SGPT) 22 7 - 52 unit/L LAB CHEMISTRY METHOD 03/02/2025 11:53 AM EDT [facility] Alkaline Phosphatase 61 34 - 104 unit/L LAB CHEMISTRY METHOD 03/02/2025 11:53 AM EDT [facility] Total Protein 6.5 6.4 - 8.5 g/dL LAB CHEMISTRY METHOD 03/02/2025 11:53 AM EDT [facility] Albumin 4.3 3.5 - 5.0 g/dL LAB CHEMISTRY METHOD 03/02/2025 11:53 AM EDT [facility] Total Bilirubin 0.5 0.3 - 1.0 mg/dL LAB CHEMISTRY METHOD 03/02/2025 11:53 AM EDT [facility] Blood Venous blood specimen / Unknown Venipuncture / Unknown 03/02/2025 10:55 AM EDT 03/02/2025 11:20 AM EDT us Nataliia Jimenez SPOOLER OPERATOR AUTOMATIC LAB BLOOD ORDERABLES Bianca l Result [facility] [address] [place] [address], [place] [phone] * (ABNORMAL) CBC auto differential (12/22/2024 5:17 AM EST) [facility] Signature WBC 5.4 4.8 - 10.8 K/mcL LAB HEMETOLOGY METHOD 12/22/2024 5:55 AM EST [facility] RBC 4.80 4.50 - 5.50 M/mcL LAB HEMETOLOGY METHOD 12/22/2024 5:55 AM [facility] Hemoglobin 13.5 13.5 - 17.5 g/dL LAB HEMETOLOGY METHOD 12/22/2024 5:55 AM [facility] Hematocrit 42.3 42.0 - 54.0 % LAB HEMETOLOGY METHOD 12/22/2024 5:55 AM [facility] MCV 87.9 79.0 - 98.0 FL LAB HEMETOLOGY METHOD 12/22/2024 5:55 AM [facility] MCH 28.1 27.0 - 32.0 pcg LAB HEMETOLOGY METHOD 12/22/2024 5:55 AM [facility] MCHC 31.9(L) 32.0 - 37.0 g/dL LAB HEMETOLOGY METHOD 12/22/2024 5:55 AM [facility] RDW 13.4 11.0 - 15.0 % LAB HEMETOLOGY METHOD 12/22/2024 5:55 AM [facility] Platelets 233 130 - 400 K/mcL LAB HEMETOLOGY METHOD 12/22/2024 5:55 AM [facility] MPV 9.6 7.0 - 11.0 FL LAB HEMETOLOGY METHOD 12/22/2024 5:55 AM [facility] NRBC 0.0 <1.0 % LAB HEMETOLOGY METHOD 12/22/2024 5:55 AM [facility] NRBC Absolute 0.00 <0.10 K/mcL LAB HEMETOLOGY METHOD 12/22/2024 5:55 AM [facility] Neutrophils Relative 81.7 % LAB HEMETOLOGY METHOD 12/22/2024 5:55 AM [facility] Lymphocytes Relative 9.1 % LAB HEMETOLOGY METHOD 12/22/2024 5:55 AM [facility] Monocytes Relative 7.5 % LAB HEMETOLOGY METHOD 12/22/2024 5:55 AM EST [facility] Eosinophils Relative 0.4 % LAB HEMETOLOGY METHOD 12/22/2024 5:55 AM [facility] Basophils Relative 0.4 % LAB HEMETOLOGY METHOD 12/22/2024 5:55 AM [facility] Immature Granulocytes Relative 0.9 % LAB HEMETOLOGY METHOD 12/22/2024 5:55 AM EST [facility] Neutrophils Absolute 4.38 1.50 - 7.00 K/mcL LAB HEMETOLOGY METHOD 12/22/2024 5:55 AM [facility] Lymphocytes Absolute 0.49(L) 1.00 - 5.00 K/mcL LAB HEMETOLOGY METHOD 12/22/2024 5:55 AM [facility] Monocytes Absolute 0.40 0.20 - 1.00 K/mcL LAB HEMETOLOGY METHOD 12/22/2024 5:55 AM EST [facility] Eosinophils Absolute 0.02 0.00 - 0.50 K/mcL LAB HEMETOLOGY METHOD 12/22/2024 5:55 AM EST [facility] Basophils Absolute 0.02 0.00 - 0.20 K/mcL LAB HEMETOLOGY METHOD 12/22/2024 5:55 AM [facility] Immature Granulocytes Absolute 0.05(H) 0.00 - 0.03 K/mcL LAB HEMETOLOGY METHOD 12/22/2024 5:55 AM [facility] Blood Venous blood specimen / Unknown Venipuncture / Unknown 12/22/2024 5:17 AM EST 12/22/2024 5:50 AM EST us Jeff NAVA LAB BLOOD ORDERABLES Final Resul t [facility] [address] [place] [address], [place] [phone] * Prolactin (12/22/2024 5:17 AM EST) Prolactin 13.30 2.50 - 17.40 ng/mL LAB CHEMISTRY METHOD 12/22/2024 6:17 AM EST [facility] Blood Venous blood specimen / Unknown Venipuncture / Unknown 12/22/2024 5:17 AM EST 12/22/2024 5:50 AM EST us Jeff NAVA LAB BLOOD ORDERABLES Final Resul t [facility] [address] [place] [address], * Magnesium (12/22/2024 5:17 AM EST) Magnesium 2.2 1.9 - 2.6 mg/dL LAB CHEMISTRY METHOD 12/22/2024 6:15 AM EST [facility] Blood Venous blood specimen / Unknown Venipuncture / Unknown 12/22/2024 5:17 AM EST 12/22/2024 5:50 AM EST us Jeff NAVA LAB BLOOD ORDERABLES Final Resul t [facility] [address] [place] [address], [place] [phone] * Ethanol (12/22/2024 5:17 AM EST) Ethanol Level <3 0 - 10 mg/dL LAB CHEMISTRY METHOD 12/22/2024 6:13 AM EST [facility] Blood Venous blood specimen / Unknown Venipuncture / Unknown 12/22/2024 5:17 AM EST 12/22/2024 5:50 AM EST us Jeff NAVA LAB BLOOD ORDERABLES Final Resul t Performing Organization Address City/[facility]/ZIP Co de Phone Number [facility] [address] [place] [address], * (ABNORMAL) Acetaminophen level (12/22/2024 5:17 AM EST) Acetaminophen Level <2.0(L) 10.0 - 30.0 mcg/mL LAB CHEMISTRY METHOD 12/22/2024 6:13 AM EST [facility] Blood Venous blood specimen / Unknown Venipuncture / Unknown 12/22/2024 5:17 AM EST 12/22/2024 5:50 AM EST us Jeff NAVA LAB BLOOD ORDERABLES Final Resul t Performing Organization Address [facility] Co de Phone Number [facility] [address] [place] [address], * Salicylate level (12/22/2024 5:17 AM EST) Salicylate Level 2.5 2.0 - 29.0 mg/dL LAB CHEMISTRY METHOD 12/22/2024 6:13 AM EST [facility] Blood Venous blood specimen / Unknown Venipuncture / Unknown 12/22/2024 5:17 AM EST 12/22/2024 5:50 AM EST us Jeff NAVA LAB BLOOD ORDERABLES Final Resul t [facility] [address] [place] [address], * ECG 12 lead (12/22/2024 4:59 AM EST) Ventricular Rate ECG 48 BPM GEMUSE Atrial Rate 48 BPM GEMUSE P-R Interval 156 ms GEMUSE QRS Duration 88 ms GEMUSE Q-T Interval 434 ms GEMUSE QTc 387 ms GEMUSE P Wave [place] 64 degrees GEMUSE R [place] 30 degrees GEMUSE T [place] 29 degrees GEMUSE ECG Interpretation Sinus bradycardia Early repolarization No previous ECGs available Confirmed by BRANDEN LOYD ([id number]) on 12/22/2024 9:09:54 PM GEMUSE 12/22/2024 4:59 AM EST 12/22/2024 9:09 PM EST us Jeff NAVA ECG ORDERABLES Final Result GEMUSE * ECG-Annotated (12/22/2024) us Provider Onbase MD ECG ORDERABLES Final Result from Last 3 Months Insurance [place] [address] Advance Directives * Full Code - Confirmed (Latest Code Status on File) Date Activated Date Inactivated Comments 03/02/2025 10:36 AM 03/06/2025 3:[address] atus was ascertained in the following way: Code status discussion: discussion with patient To update the patient's code status, place a code status order. Do not modify or discontinue any currently active code status orders. Care Teams Named Account Executive Relationship Specialty Start Date End Date Toby Edouard DO [address] [place] [address] PCP - General Internal Medicine 12/22/24
--- OUTSIDE RECORDS SUMMARY | 2025-03-20 14:45 | XMS_ITS ---
Author Organization [facility] Address [address] [place] [address] Phone Care Team Providers Care Recreation Therapist Name Role Phone Toby Edouard DO Primary Care Provider Transitional Care Management Status:Identified (Enrolling) Start date:03/09/2025 Case Team Name Relationship Phone Cheri Tim MA (Responsible Staff) Continued Care and Services Coordination
--- OUTSIDE RECORDS SUMMARY | 2025-03-20 14:45 | XMS_ITS ---
Author Name [facility] Organization Unknown Results Test Name/Text Value Interpretation Date Range Source Zonisamide SerPl-mCnc 19ug/mL Normal [id number] 10 - 40 [facility] Glucose SerPl-mCnc 88mg/dL Normal [id number] 70 - 199 [facility] Potassium SerPl-sCnc 3.5mmol/L Normal [id number] 3.5 - 5.1 [facility] BUN SerPl-mCnc 16mg/dL Normal [id number] 9 - 20 [facility] ALP SerPl-cCnc 61unit/L Normal [id number] 34 - 104 [facility] Bilirub SerPl-mCnc 0.5mg/dL Normal [id number] 0.3 - 1 [facility] BUN/Creat SerPl 12.3 Normal [id number] 12 - 20 C [facility] Anion Gap SerPl-sCnc 7 Normal [id number] 5 - 14 [facility] CO2 SerPl-sCnc 25mmol/L Normal [id number] 24 - 32 [facility] Prot SerPl-mCnc 6.5g/dL Normal [id number] 6.4 - 8.5 C [facility] Sodium SerPl-sCnc 140mmol/L Normal [id number] 135 - 145 [facility] eGFRcr SerPlBld CKD-EPI 2020 69mL/min/1.73 m2 Normal [id number] - [facility] Calcium SerPl-mCnc 9.1mg/dL Normal [id number] 8.4 - 10 .2 [facility] Creat SerPl-mCnc 1.3mg/dL Normal [id number] 0.7 - 1.3 [facility] AST SerPl-cCnc 18unit/L Normal [id number] 5 - 40 CT [facility] Albumin SerPl-mCnc 4.3g/dL Normal 3.5 - 5 [facility] ALT SerPl-cCnc 22unit/L Normal [id number] 7 - 52 [facility] Chloride SerPl-sCnc 108mmol/L Above high normal 98 - 107 [facility] History of Medication Use Medication Directions Dispensed Refills Start Date End Date Stat us cenobamate (Xcopri Titration Pack) 12.5 mg (14)- 25 mg (14) tablets,dose pack Take 1 tablet (12.5 mg) by mouth one (1) time each day for 14 days. Then take 1 tablet (25 mg) by mouth one (1) time each day for 14 days. 03/06/2025 active diphenhydrAMINE (BENADRYL) capsule 25 mg 25 mg, oral, Nightly PRN, itching, sleep, Starting on Sun03/03/25 at 1032 03/03/2025 active B complex-vitamin C tablet Take 1 tablet by mouth 1 (one) time each day. 03/02/2025 active LORazepam (ATIVAN) injection 1 mg 1 mg, intravenous, Every 2 hours PRN, seizures, for convulsions and loss of consciousness lasting more than 1 minute, Starting on Sun03/02/25 at 1035, Prior to IV use, lorazepam injection should be DILUTED with an equal volume of compatible solution; Rate of administration should NOT exceed 2 mg/min. 03/02/2025 active sodium chloride 0.9 % flush 10 mL [Order 1 Start] Name: Insert peripheral IV Signed Summary: STAT, Once, On Sun03/02/25 at 1035, For 1 occurrence [Order 1 End] [Order 2 Start] Name: Maintain IV access Signed Summary: Until discontinued, Starting on Sun03/02/25 at 1035, Until Specified [Order 2 End] [Order 3 Start] Name: Saline lock IV 03/02/2025 active zonisamide (ZONEGRAN) 100 mg capsule Take 2 capsules (200 mg total) by mouth 2 (two) times a day. 02/19/2025 active LORazepam (ATIVAN) 0.5 mg tablet Sig 1 tab po prn seizure > 5 minutes, can repeat X1 in 24 hours 10/14/2024 active Problems Problem Status Onset Date Problem Type Date of Resoluti on Source Breakthrough seizure ([facility] V24, [facility] V28) active 2025-03-[address] [facility] Seizure ([facility] V24, [facility] V28) active 2025-02-[address] [facility] Encounters Encounter Type Encounter Reason Primary Diagnosis Location Date Inpatient Unspecified convulsions ([facility] V24, [facility] V28) Unspecified convulsions ([facility] V24, [facility] V28) [facility] 03/04/2025 Ambulatory Seizures Unspecified convulsions [facility] 02/19/2025 Care Team Organization Name Specialty Phone Email Start Date End [place] [facility] [place]/[facility]2025 [facility] 02/19/2025
--- OUTSIDE RECORDS SUMMARY | 2025-03-20 14:45 | XMS_ITS | Encounter Summary ---
Author Organization [facility] Address [address] [place] [address] Care Team Providers Care Ldr Nurse Name Role Phone Toby Edouard DO Primary Care Provider Reason for Visit * Reason Onset Date Comments Transitional Care Management 03/09/2025 Encounter Details Date Type Department Care Team (Late st Contact Info) Description 03/09/2025 Telephone Internal Medicine - [place] [address] [place] [phone] Toby Edouard DO [address] [facility] [place] [address] Transitional Care Management Social History Tobacco Use Types Packs/Day Years [...] 10:40 AM EDT Office Visit Neurostroke - [place] [address] [place] [phone] Sigifredo Tim MD [address] [place] [address] 05/19/2025 10:30 AM EDT Office Visit [facility] [address] [place] [address] Gil Pineda MD [address] [place] [address] documented as of this encounter Visit Diagnoses Not on filedocumented in this encounter Care Teams Ldr Nurse Relationship Specialty Start Date End Date Toby Edouard DO [address] [facility] [address] [facility] [address] PCP - General Internal Medicine 12/22/24 documented as of this encounter
== END 2025-03-20 15:25 | disposition home or self-care (01) ==
LOC: HO.HMCH 14:02
DX: R56.9 Unspecified convulsions (principal); R73.9 Hyperglycemia, unspecified; F41.9 Anxiety disorder, unspecified; R00.1 Bradycardia, unspecified; L81.9 Disorder of pigmentation, unspecified

== ENCOUNTER → 2025-03-20 14:02 | Outpatient (BNVA) | payer OTHER, SELFPAY | DX: Z76.89 Persons encountering health services in other specified circumstances (principal); R56.9 Unspecified convulsions; R73.9 Hyperglycemia, unspecified; F41.9 Anxiety disorder, unspecified; R00.1 Bradycardia, unspecified; L81.9 Disorder of pigmentation, unspecified | CPT/HCPCS: 96127; 99202 ==

== ENCOUNTER 2025-05-06 08:32 | Outpatient (REF) | payer OTHER, SELFPAY ==
--- OUTSIDE RECORDS SUMMARY | 2025-05-06 08:47 | XMS_ITS | Encounter Summary ---
Author Organization [facility] Address [address] [place] [address] Care Team Providers Care Broadcast News Producer Name Role Phone Toby Edouard DO Primary Care Provider Encounter Details Date Type Department Care Team (Late st Contact Info) Description 03/09/2025 Patient Outreach Internal Medicine - [place] [address] [place] [phone] Toby Edouard DO [address] [place] [phone] Social History Tobacco Use Types Packs/Day Years [...] Care Team (Late st Contact Info) Description 05/19/2025 11:00 AM EDT Office Visit [facility] [address] [place] [address] Gil Pineda MD [address] [place] [phone] 08/18/2025 9:40 AM EDT Office Visit Neurology [address] [place] [phone] Sigifredo Tim MD [address] [facility] [address] [place] [address] documented as of this encounter Visit Diagnoses Not on filedocumented in this encounter Care Teams Broadcast News Producer Relationship Specialty Start Date End Date Toby Edouard DO [address] [facility] [address] [facility] [place] [address] PCP - General Internal Medicine 12/22/24 documented as of this encounter
[2025-05-06 09:58] LABS: MANUAL DIFF FLAG NO
[2025-05-06 10:37] LABS: Basophils Absolute Auto 0.1 X10*3/uL (0.0-0.2); Basophils Percent Auto 1.6 % (0-2); Eosinophils Absolute Auto 0.2 X10*3/uL (0.0-0.4); Eosinophils Percent Auto 4.3 % (0-4); Estimated Average Glucose 100 mg/dL; Hematocrit 43.3 % (42.0-52.0); Hemoglobin 14.2 g/dl (14.0-18.0); Hemoglobin A1c % 5.1 % (<6.0); Imm Gran Abs Auto 0.05 X10*3/uL (0.00-0.03); Imm Gran Pct Auto 1.3 % (0.0-0.4); Lymphocytes Absolute Auto 1.3 X10*3/uL (1.2-4.9); Lymphocytes Percent Auto 34.8 % (20-40); Mean Corpuscular HGB Conc 32.8 g/dl (31.0-36.0); Mean Corpuscular Hemoglobin 28.1 pg (27.0-33.0); Mean Corpuscular Volume 85.7 fL (80.0-98.0); Mean Platelet Volume 9.4 fL (9.4-12.4); Monocytes Absolute Auto 0.4 X10*3/uL (0.1-1.2); Monocytes Percent Auto 10.2 % (2-11); Neutrophils Absolute Auto 1.8 x10*3/uL (2.0-8.3); Neutrophils Percent Auto 47.8 % (45-73); Platelet Count 243 X10*3/uL (160-400); Red Blood Count 5.05 X10*6/uL (4.60-5.80); Red Cell Distribution Width 13.5 % (11.0-16.0); White Blood Count 3.7 X10*3/uL (4.8-10.8)
[2025-05-06 10:45] LABS: Alanine Aminotransferase 27 U/L (0-40); Albumin Level 4.4 g/dL (3.5-5.0); Alkaline Phosphatase 89 U/L (39-117); Anion Gap 8 (12-20); Aspartate Amino Transferase 23 U/L (5-37); Bilirubin Total 0.3 mg/dL (0.0-1.0); Blood Urea Nitrogen 17 mg/dL (9-16); Calcium 8.9 mg/dL (8.4-10.2); Carbon Dioxide 24 mmol/L (22-29); Chloride 112 mmol/L (96-108); Cholesterol 169 mg/dL (<200); Estimated Glomerular Filt Rate > 60; Glucose Fasting 88 mg/dL (60-99); HDL Cholesterol 56 mg/dL (>40); LDL Cholesterol Calculated 102 mg/dL (<100); Sodium 140 mmol/L (135-145); Total Protein 6.8 g/dL (6.5-8.0); Triglycerides 56 mg/dL (<150)
[2025-05-06 10:48] LABS: Appearance Urine Clear; Color Urine Dark Yellow; Glucose Urine UA Negative (Negative); Leukocyte Esterase Urine Negative (Negative); Nitrite Urine Negative (Negative); PH 5.5 (5.0-9.0); Urine Blood Negative (Negative); Urine Ketones Negative (Negative); Urine Protein Negative (Neg-Trace)
[2025-05-06 10:49] LABS: TSH reflex Free T4 0.77 uIU/mL (0.32-4.0); Vitamin D 25-OH Total 22.4 ng/mL (>30)
== END 2025-05-06 08:33 | disposition home or self-care (01) ==
LOC: HO.10HDL 08:32
DX: R56.9 Unspecified convulsions (principal); R73.9 Hyperglycemia, unspecified
CPT/HCPCS: 36415; 80053; 80061; 81003; 82306; 83036; 84443; 85025

== ENCOUNTER 2025-05-12 15:28 | Outpatient (AMB) | payer OTHER, SELFPAY ==
[2025-05-12 15:32] VITALS: BP 104/64; PULSE 62; RESP 20; TEMP 36.6; O2SAT 97; BMI 27.3
--- NOTE | 2025-05-12 15:32 | MHC.PC.OV ---
Vital Signs 05/12/25 15:32 Height 5 ft 8 in Weight 179 lb 9.6 oz BMI 27.3 BP 104/64 Blood Pressure Location Lt brachial Position Sitting Respiration 20 Pulse 62 Pulse Source Pulse Oximeter Temp 97.9 F Temp Source Oral Pulse Oximetry (%) 97 Oxygen Delivery Method Room Air Intake Visit Reasons: annual exam Marketing Ambassador Required: No Accompanied by: Self / Same As Patient Allergies No Known Allergies Allergy (Verified 05/12/25 15:51) Medication List - Last Reconciled 05/12/25 by TESFAYE Mcdonald B-complex with vitamin C 1 tab PO DAILY hydroxyzine HCl 50 mg PO BID PRN oxcarbazepine 150 mg PO BID oxcarbazepine 300 mg PO BID vitamin V13-vjrvy acid 500-400 mcg 1 tab PO DAILY zonisamide 200 mg PO BID Tobacco use date assessed: 05/12/25 Dental Screening Dental Screen Date: 05/12/25 Did you have a dental visit in the last 12 months?: Yes Did you have a dental problem in the last 6 months where you did not have access to dental care?: No Was dental information given to patient?: Patient has dentist HPI annual exam HPI Details Here for annual physical Dentist: up to date Eye: not sure Snellen: Right: Left: Corrected vision: no STI screening: Colonoscopy:n/a Pap Smer:n/a PHQ-9: Flu: up to date COVID: x3 Tdap: due 2025 Diet: regular Exercise:runs intermittently, push up and arm curls. The patient is a 44-year-old male presenting with a follow-up for annual physical and seizure management. Seizure disorder has been identified with a left temporal lobe focus. Previously, travel to [place] for consultations has been replaced by access to a closer neurologist in [place]. An increase in oxcarbazepine to 450 mg was reported. Patient history includes dental concerns with a missing veneer and the requirement for an implant pending insurance coverage, subjecting the patient to discomfort from nerve exposure. Recent labs highlighted low Vitamin D levels, with geographic factors contributing. The patient inquired about multivitamin use and maintains regular physical activity. He is hoping to get a tooth implant next year. Reports that [facility] [place] [facility]. with positive seizure activities in the left side of the temporal lobe Dr. Henderson-saw him the 10th of this month. oxcarbazepine was increased to 450 from 300mg. The patient to follow up with Leny Pineda (neurologist at [facility]), on 05/19/2025. [facility] Medical History (Updated 05/12/25 @ 16:18 by TESFAYE Mcdonald) Bradycardia Hx of abdominal abscess Seizures Surgical History Hx of appendectomy Family History Mother Narcolepsy Bipolar disorder Anxiety Difficulty swallowing Esophageal lesion Father No problems noted. Son Absence seizure Son Speech delay Other FH: mental illness Social History Household Members: Family Housing: House Alcohol intake: never Patient Tobacco Use Status: Current someday Tobacco user (Tobacco Wrap) e-Cigarette/Vaping Use: Currently Using Substance Use Type: Marijuana service: No Current occupational status: employed Current occupation: [employer] Cognitive needs: No Hearing needs: No Vision needs: No Questionnaire PHQ-9 Over the last 2 weeks, how often have you been bothered by any of the following problems? 1. Little interest or pleasure in doing things: not at all 2. Feeling down, depressed, or hopeless: more than half the days 3. Trouble falling or staying asleep, or sleeping too much: not at all 4. Feeling tired or having little energy: not at all 5. Poor appetite or overeating: not at all 6. Feeling bad about yourself - or that you are a failure or have let yourself or your family down: more than half the days 7. Trouble concentrating on things, such as reading the newspaper or watching television: not at all 8. Moving or speaking so slowly that other people could have noticed. Or the opposite - being so fidgety or restless that you have been moving around a lot more than usual: not at all 9. Thoughts that you would be better off or of hurting yourself in some way: not at all Total score: 4 Depression Screening Interpretation: Positive Depression Screening Done: Yes Source: Developed by Drs. Edu Thorne, Felipe Hahn and colleagues, with an educational alva from [employer]. Thrive Questionnaire Date Thrive assessed: 05/12/25 I am a: Patient What is your living situation today?: I have a steady place to live Within the past 12 months, did the food you bought not last and you didn't have the money to get more?: I choose not to answer this question Within the past 12 months, did you worry whether your food would run out before you got money to buy more?: I choose not to answer this question Do you have trouble paying for medicines?: I choose not to answer this question Do you have trouble getting transportation to medical appointments?: I choose not to answer this question Do you have trouble paying your heating and electricity bill?: I choose not to answer this question Do you have trouble taking care of your child, family member or friend?: I choose not to answer this question Do you have trouble with day-to-day activities such as bathing, preparing meals, shopping, managing finances, etc.?: No Are you currently unemployed and looking for a job?: No Are you interested in more education?: No Please select the resources that you would like help with: None Currently or been in a relationship where the following occur: I choose not to answer THRIVE Score: 0 AUDIT C Alcohol Use Questionnaire (AUDIT-C) 1. How often do you have a drink containing alcohol?: Never Total Score: 0 Score Reviewed/Action Taken: No АЛЕКСАНДР-7 AMB Questionnaire АЛЕКСАНДР-7 Date АЛЕКСАНДР - 7 assessed: 05/12/25 Feeling nervous, anxious, or on edge: 0 = Not at all Not being able to stop or control worryin = Not at all Worrying too much about different things: 0 = Not at all Trouble relaxin = Several days Being so restless that it is hard to sit still: 0 = Not at all Becoming easily annoyed or irritable: 2 = More than half the days Feeling afraid as if something awful might happen: 0 = Not at all Total АЛЕКСАНДР-7 score (0-4 normal; 5-9 mild; 10-14 moderate; 15-21 severe): 3 Source: Developed by Cynthia Pino Kurt Kroenke and colleagues, with an educational alva from [employer]. Review of Systems Const Denies headache(s) Eyes Denies loss of vision ENT Denies vertigo, Denies dizziness, Denies headache(s) and Denies sore throat Card Denies chest pain, Denies leg edema and Denies lightheadedness Resp Denies cough, Denies hemoptysis and Denies wheezing GI Denies abdominal pain, Denies melena, Denies constipation, Denies diarrhea and Denies vomiting Denies dysuria, Denies urinary frequency and Denies urinary urgency Musc Reports arthralgias (bilateral knees aches-mild in general), Denies joint swelling, Denies numbness and Denies tingling Skin/Breast Reports rash (ongoing patches to back) Neuro Denies Abnormal speech present, Denies behavioral changes, Denies vertigo, Denies dizziness, Denies headache(s), Denies loss of vision, Reports memory loss (short term memory deficit), Denies numbness, Reports convulsions (recurrent seizures) and Denies tingling Psych Reports anxiety, Denies behavioral changes, Denies depression, Reports irritability (easily irritable), Reports memory loss (short term memory deficit), Denies panic attacks, Denies homicidal ideation and Denies suicidal ideation Rafi/Lymph Denies easy bleeding and Denies easy bruising Aller/Immun Denies wheezing Physical exam (Primary Care) Vital Signs: Last Vital Signs Temp 97.9 F 05/12/25 15:32 Pulse 62 05/12/25 15:32 Resp 20 05/12/25 15:32 BP 104/64 05/12/25 15:32 Pulse Ox 97 05/12/25 15:32 Oxygen Delivery Method Room Air 05/12/25 15:32 BMI result Body Mass Index 27.3 Tobacco/Smoking Status: Tobacco use Status Tobacco use date assessed 05/12/25 05/12/25 15:46 Patient Tobacco Use Status Current someday Tobacco ( 05/12/25 15:46 Tobacco Wrap) Tobacco use type 03/20/25 15:24 e-Cigarette/Vaping Use Currently Using 05/12/25 15:46 PHQ-9: PHQ-9 Score PHQ-9: Total score 4 05/12/25 15:54 Depression Screening Interpretation: Positive Thrive Assessment: Date of Thrive Assessment Date Thrive assessed 05/12/25 05/12/25 15:46 Currently or been in a relationship where the following occur: I choose not to answer Const General: healthy appearing, no acute distress, alert and awake Nutritional Appearance: well nourished Orientation/consciousness: oriented to person, oriented to place and oriented to time HENMT Ears: TM's normal bilaterally General nose exam: Normal nasal mucous membranes and turbinates present Eyes Conjunctivae: conjunctivae normal Sclerae: sclerae normal Pupils: Equal, round and reactive pupils present Neck Neck: Yes no lymphadenopathy and Yes no JVD Thyroid: Thyroid normal Carotids: no bruits Resp Effort & Inspection: normal respiratory effort and not tachypneic Auscultation: no crackles, no rales, no rhonchi and no wheezes Cardio Rate: regular rate Rhythm: regular rhythm Heart sounds: no murmurs and normal S1 and S2 GI Palpation (GI): Soft to palpation, nontender, no hepatomegaly and no splenomegaly Auscultation: normal bowel sounds Skin General skin exam: dry skin Lesions: lesion noted (scaly hyperpigmentation to back area) Neuro General: oriented to person, oriented to place and oriented to time Cranial nerves: Yes CN's II-XII intact bilaterally and Yes Equal, round and reactive pupils present Speech: No Abnormal speech present Gait exam (Neuro): Normal gait present Motor exam (neuro): no tremor noted Deep tendon reflexes (DTR's): Right triceps reflex intensity grade: 2+, Left triceps reflex intensity grade: 2+, Rt Biceps (C5, C6): 2+, Left biceps reflex intensity grade: 2+, Right brachioradialis reflex intensity grade: 2+, Left brachioradialis reflex intensity grade: 2+, Right patellar reflex intensity grade: 2+ and Left patellar reflex intensity grade: 2+ Extrem Right upper extremity: full ROM Left upper extremity: full ROM Right lower extremity: full ROM; no edema Left lower extremity: full ROM; no edema Psych Mental Status: mental status grossly normal Speech and movement: Normal speech and movement present Affect: normal affect Attitude: cooperative Thought process: Normal thought process present Results Reviewed Results Reviewed: Laboratory Tests 05/06/25 08:41 WBC 3.7 L RBC 5.05 Hgb 14.2 Hct 43.3 MCV 85.7 MCH 28.1 MCHC 32.8 RDW 13.5 Plt Count 243 MPV 9.4 Sodium 140 Potassium 4.0 Chloride 112 H Carbon Dioxide 24 Anion Gap 8 L BUN 17 H Creatinine 1.25 Estimated GFR > 60 Fasting Glucose 88 Hemoglobin A1c % 5.1 Calcium 8.9 Total Bilirubin 0.3 AST 23 ALT 27 Alkaline Phosphatase 89 Total Protein 6.8 Albumin 4.4 Triglycerides 56 Cholesterol 169 LDL Cholesterol, Calc 102 H HDL Cholesterol 56 25-OH Vitamin D Total 22.4 L TSH 0.77 Urine Color Dark Yellow Urine Appearance Clear Urine pH 5.5 Ur Specific [place] 1.020 Urine Protein Negative Urine Glucose (UA) Negative Urine Ketones Negative Urine Blood Negative Urine Nitrite Negative Ur Leukocyte Esterase Negative Coding Level of Care Code Est Pt Prev Care 40-64y(19989) Diagnoses Annual physical exam Z00.00 Anxiety F41.9 Bradycardia R00.1 Pure hypercholesterolemia E78.00 Hyperglycemia R73.9 Vitamin D deficiency E55.9 Seizures R56.9 Scaly patch rash R21 Time Spent (min) 39 Assessment & Plan Assessment & Plan (1) Annual physical exam: Code(s): Z00.00 - Encounter for general adult medical examination without abnormal findings Category: Medical Plan: Preventative guidelines and recent labs reviewed with the patient (2) Anxiety: Code(s): F41.9 - Anxiety disorder, unspecified Category: Medical Plan: CBT encouraged The patient was referred to Psychology on his previous visit Continue hydroxyzine 50 mg b.i.d. p.r.n. (3) Bradycardia: Code(s): R00.1 - Bradycardia, unspecified Category: Medical Plan: Her rate 62 today in office. Continues to be asymptomatic (4) Pure hypercholesterolemia: Code(s): E78.00 - Pure hypercholesterolemia, unspecified Category: Medical Plan: LDL on recent labs is 102, slightly above goal Reinforced low-cholesterol diet and activity as tolerated We will recheck lipids in six-month (5) Hyperglycemia: Code(s): R73.9 - Hyperglycemia, unspecified Category: Medical Plan: Fasting glucose 88, A1c 5.1% on recent labs Reinforced low sugar/carbohydrate and activity as tolerated We will recheck fasting glucose in six-month (6) Vitamin D deficiency: Code(s): E55.9 - Vitamin D deficiency, unspecified Category: Medical Plan: Vitamin D22.4 Cholecalciferol 25 mcg daily ordered (7) Seizures: Code(s): R56.9 - Unspecified convulsions Category: Medical Plan: Patient seizures are fairly new to him. Reports that this started last year and has changed life completely Reports that he went to [place] for [facility]. with positive seizure activities in the left side of the temporal lobe Dr. Deras-saw him the of this month and oxcarbazepine was increased to 450 from 300mg. Continue zonisamide 200mg bid. He is awaiting follow up with his other neurologist at [facility] on 05/19/2025. Dr. Pineda, who had referred to him to Dr. Deras (8) Scaly patch rash: Code(s): R21 - Rash and other nonspecific skin eruption Category: Medical Plan: The patient was referred to Dermatology at his previous visit Plan The patient to return in 6 months Orders: Orders Complete Blood Count Auto Diff 6 Months F41.9 - Anxiety disorder, unspecified, R56.9 - Unspecified convulsions, E78.00 - Pure hypercholesterolemia, unspecified, R00.1 - Bradycardia, unspecified, E55.9 - Vitamin D deficiency, unspecified Lipid Panel 6 Months F41.9 - Anxiety disorder, unspecified, R56.9 - Unspecified convulsions, E78.00 - Pure hypercholesterolemia, unspecified, R00.1 - Bradycardia, unspecified, E55.9 - Vitamin D deficiency, unspecified TSH reflex Free T4 6 Months F41.9 - Anxiety disorder, unspecified, R56.9 - Unspecified convulsions, E78.00 - Pure hypercholesterolemia, unspecified, R00.1 - Bradycardia, unspecified, E55.9 - Vitamin D deficiency, unspecified UA CC w/rflx Micro + Cult 6 Months F41.9 - Anxiety disorder, unspecified, R56.9 - Unspecified convulsions, E78.00 - Pure hypercholesterolemia, unspecified, R00.1 - Bradycardia, unspecified, E55.9 - Vitamin D deficiency, unspecified Vitamin D 25-OH Total 6 Months F41.9 - Anxiety disorder, unspecified, R56.9 - Unspecified convulsions, E78.00 - Pure hypercholesterolemia, unspecified, R00.1 - Bradycardia, unspecified, E55.9 - Vitamin D deficiency, unspecified Comprehensive [place]. Panel Fast 6 Months F41.9 - Anxiety disorder, unspecified, R56.9 - Unspecified convulsions, E78.00 - Pure hypercholesterolemia, unspecified, R00.1 - Bradycardia, unspecified, E55.9 - Vitamin D deficiency, unspecified Medications: New cholecalciferol (vitamin D3) 25 mcg PO DAILY 90 caps 3RF
--- OUTSIDE RECORDS SUMMARY | 2025-05-12 17:59 | XMS_ITS | Encounter Summary ---
Author Organization [facility] Address [address] [place] [address] Care Team Providers Care Head Start Coordinator Name Role Phone Toby Edouard DO Primary Care Provider Encounter Details Date Type Department Care Team (Late st Contact Info) Description 03/09/2025 Patient Outreach Internal Medicine - [facility] [address] [place] [phone] Toby Edouard DO [address] [place] [phone] Social History Tobacco Use Types Packs/Day Years [...] Description 05/19/2025 11:00 AM EDT Office Visit [facility] [address] [place] [address] Gil Pineda MD [address] [place] [phone] 08/18/2025 9:40 AM EDT Office Visit Neurology [address] [place] [phone] Sigifredo Tim MD [address] [facility] [address] [place] [address] documented as of this encounter Visit Diagnoses Not on filedocumented in this encounter Care Teams Head Start Coordinator Relationship Specialty Start Date End Date Toby Edouard DO [address] [facility] [address] [facility] [place] [phone] PCP - General Internal Medicine 12/22/24 documented as of this encounter
== END 2025-05-12 16:23 | disposition home or self-care (01) ==
LOC: HO.HMCH 15:28
DX: Z00.00 Encounter for general adult medical examination without abnormal findings (principal); R56.9 Unspecified convulsions; F41.9 Anxiety disorder, unspecified; R00.1 Bradycardia, unspecified; E78.00 Pure hypercholesterolemia, unspecified; R73.9 Hyperglycemia, unspecified; E55.9 Vitamin D deficiency, unspecified; R21 Rash and other nonspecific skin eruption

== ENCOUNTER → 2025-05-12 15:28 | Outpatient (BNVA) | payer OTHER, SELFPAY | DX: Z00.00 Encounter for general adult medical examination without abnormal findings (principal); G40.909 Epilepsy, unspecified, not intractable, without status epilepticus; E55.9 Vitamin D deficiency, unspecified; F41.9 Anxiety disorder, unspecified; R00.1 Bradycardia, unspecified; E78.00 Pure hypercholesterolemia, unspecified; R73.9 Hyperglycemia, unspecified; R21 Rash and other nonspecific skin eruption | CPT/HCPCS: 99396 ==

== ENCOUNTER 2025-08-24 15:54 | Outpatient (AMB) | payer OTHER, SELFPAY ==
--- NOTE | 2025-08-24 16:14 | MHC.PC.OV ---
Vital Signs 08/24/25 16:16 Height 5 ft 8 in Weight 190 lb 8 oz BMI 29.0 BP 102/56 L Blood Pressure Location Lt brachial Position Sitting Respiration 18 Pulse 61 Pulse Source Pulse Oximeter Temp 99.2 F Temp Source Temporal Artery Scan Pulse Oximetry (%) 92 Oxygen Delivery Method Room Air Intake Visit Reasons: tip of penis pain/?UTI Manager Review Required: No Accompanied by: Self / Same As Patient Allergies No Known Allergies Allergy (Verified 08/24/25 16:33) Medication List - Last Reconciled 08/24/25 by TESFAYE Mcdonald B-complex with vitamin C 1 tab PO DAILY cholecalciferol (vitamin D3) 25 mcg PO DAILY hydroxyzine HCl 50 mg PO BID oxcarbazepine 150 mg PO BID oxcarbazepine 300 mg PO BID vitamin I86-ytmva acid 500-400 mcg 1 tab PO DAILY zonisamide 200 mg PO BID Tobacco use date assessed: 08/24/25 Dental Screening Dental Screen Date: 08/24/25 Did you have a dental visit in the last 12 months?: Yes Did you have a dental problem in the last 6 months where you did not have access to dental care?: No Was dental information given to patient?: Patient has dentist HPI tip of penis pain/?UTI HPI Details The patient is a 44-year-old male presenting with penile pain and burning sensation during urination. The patient reports experiencing pain at the tip of the penis, which started recently and is accompanied by a burning sensation during urination. He notes that the burning sensation is present even when not urinating, and there is no associated drainage or bumps initially. Recently, the patient observed the appearance of bumps, which he associates with previous similar episodes. He has not been treated for this condition before, and the first outbreak was earlier this year. The patient has been advised that stress can trigger the recurrence of symptoms, and he is aware that the condition remains dormant in the body. Second outbreak of bumps at shaft of the penis. Pain at the tips of the penis and along with burning with urination. Reports that he has been feeling the pain at the tip of the penis about 2-3 weeks ago. Reports that the bumps came today. Reports that he had the bumps probably in May of this year. Reports that he never been treated for before. Reports that his had mention that she had HPV before. [facility] Medical History Bradycardia Hx of abdominal abscess Seizures Surgical History Hx of appendectomy Family History Mother Narcolepsy Bipolar disorder Anxiety Difficulty swallowing Esophageal lesion Father No problems noted. 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 Cognitive needs: No Hearing needs: No Vision needs: No Questionnaire Thrive Questionnaire Date Thrive assessed: 03/20/25 I am a: Patient What is your living situation today?: I have a steady place to live Within the past 12 months, did the food you bought not last and you didn't have the money to get more?: I choose not to answer this question Within the past 12 months, did you worry whether your food would run out before you got money to buy more?: I choose not to answer this question Do you have trouble paying for medicines?: I choose not to answer this question Do you have trouble getting transportation to medical appointments?: I choose not to answer this question Do you have trouble paying your heating and electricity bill?: I choose not to answer this question Do you have trouble taking care of your child, family member or friend?: I choose not to answer this question Do you have trouble with day-to-day activities such as bathing, preparing meals, shopping, managing finances, etc.?: No Are you currently unemployed and looking for a job?: No Are you interested in more education?: No Please select the resources that you would like help with: None Currently or been in a relationship where the following occur: I choose not to answer THRIVE Score: 0 АЛЕКСАНДР-7 AMB Questionnaire АЛЕКСАНДР-7 Date АЛЕКСАНДР - 7 assessed: 05/12/25 Source: Developed by Cynthia Pino.W. Thiago, Felipe Granado and colleagues, with an educational alva from [employer]. Review of Systems Const Denies body aches, Denies chills, Denies fever(s), Denies headache(s) and Denies poor appetite Eyes Reports no additional complaints ENT Denies dysphagia, Denies dizziness, Denies headache(s) and Denies odynophagia Card Denies chest pain, Denies syncope, Denies edema, Denies irregular heart rhythm, Denies lightheadedness and Denies dyspnea Resp Denies cough and Denies dyspnea GI Denies abdominal pain, Denies constipation, Denies dysphagia, Denies diarrhea, Denies nausea, Denies odynophagia and Denies vomiting Reports genital lesions, Reports genital pain and Reports dysuria Musc Reports no additional complaints and Denies abnormal gait Skin/Breast Reports system reviewed and no additional complaints, except as documented Neuro Denies abnormal gait, Denies dizziness, Denies syncope and Denies headache(s) Psych Reports no additional complaints Physical exam (Primary Care) Vital Signs: Last Vital Signs Temp 99.2 F 08/24/25 16:16 Pulse 61 08/24/25 16:16 Resp 18 08/24/25 16:16 BP 102/56 L 08/24/25 16:16 Pulse Ox 92 08/24/25 16:16 Oxygen Delivery Method Room Air 08/24/25 16:16 BMI result Body Mass Index 29.0 Tobacco/Smoking Status: Tobacco use Status Tobacco use date assessed 08/24/25 08/24/25 16:15 Patient Tobacco Use Status Current someday Tobacco ( 08/24/25 16:15 Tobacco Wrap) Tobacco use type 03/20/25 15:24 e-Cigarette/Vaping Use Currently Using 08/24/25 16:15 Thrive Assessment: Date of Thrive Assessment Date Thrive assessed 03/20/25 08/24/25 16:15 Currently or been in a relationship where the following occur: I choose not to answer Const General: cooperative, healthy appearing, comfortable and no acute distress Orientation/consciousness: patient oriented x3 HENMT Head: Yes normocephalic Ears: hearing grossly normal bilaterally General nose exam: Normal external nose present Eyes General: appearance normal, both eyes and all related structures Conjunctivae: conjunctivae normal Neck Neck: Yes full ROM and Yes no lymphadenopathy Resp Effort & Inspection: normal respiratory effort Auscultation: clear to auscultation bilaterally, no crackles, no rales, no rhonchi and no wheezes Cardio Rate: regular rate Rhythm: regular rhythm Penis: papules (grouped on the shaft of penis) Skin General skin exam: no rashes or lesions noted Neuro General: patient oriented x3 Gait exam (Neuro): Normal gait present Extrem General: Yes normal to inspection, Yes full ROM and No edema Psych Affect: normal affect Attitude: cooperative Insight: Good insight present (Psych) Judgement: Good judgement present (Psych) Coding Level of Care Code Est Pt Level 3 (32951) Diagnoses 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 Pending test results, antiviral therapy has been initiated to manage symptoms and prevent further outbreaks. The patient has been informed that stress can exacerbate the condition, and measures to manage stress have been discussed. Patient is also being tested for other sexually transmitted diseases, including an urinary tract infection. The patient is instructed to go to the lab to get tested before starting the medication. Orders: Orders Syphilis Screen Today A64 - Unspecified sexually transmitted disease CT NG by PCR Urine Today A64 - Unspecified sexually transmitted disease HIV Ab/Ag Today A64 - Unspecified sexually transmitted disease UA CC w/rflx Micro + Cult Today A64 - Unspecified sexually transmitted disease Herpes Simplex Virus Ab IgG Today A64 - Unspecified sexually transmitted disease Herpes Virus Culture rflx Type Today A64 - Unspecified sexually transmitted disease Medications: New valacyclovir 1,000 mg PO DAILY 5 tabs 0RF 5 days
[2025-08-24 16:16] VITALS: BP 102/56; PULSE 61; RESP 18; TEMP 37.3; O2SAT 92; BMI 29.0
--- OUTSIDE RECORDS SUMMARY | 2025-08-24 18:00 | XMS_ITS | Clinical Summary ---
Author Organization [facility] Address [address] [place] [address] Phone Care Team Providers Care Hooker Inspector Name Role Phone Toby Edouard DO Primary Care Provider Allergies Active Allergy Reactions Criticality Noted Date Comments Lactose 07/09/2024 Medications LORazepam (ATIVAN) 0.5 mg tablet Sig 1 tab po prn seizure > 5 minutes, can repeat X1 in 24 hours 10/14/20 24 Active B complex-vitami n C tablet Take 1 tablet by mouth 1 (one) time each day. 03/06/20 25 026 Active Vitamin D3 25 mcg (1,000 unit) capsule Take 1 capsule (1,000 Units total) by mouth 1 (one) time each day. 05/12/20 25 Active OXcarbazepine (TRILEPTAL) 600 mg tabletIndicati ons:Seizure (CMS/HCC V24, CMS/HCC V28) Take 1 tablet (600 mg total) by mouth 1 (one) time each day in the morning AND 1.5 tablets (900 mg total) at bedtime. 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 270 each 3 08/18/20 25 Active zonisamide (ZONEGRAN) 100 mg capsuleIndicat ions:Seizure (CMS/HCC V24, CMS/HCC V28) Take 2 capsules (200 mg total) by mouth 2 (two) times a day. 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 120 capsule 2 05/05/20 25 025 Discontinued(Re order) OXcarbazepine (TRILEPTAL) 600 mg tabletIndicati ons:Seizure (CMS/HCC V24, CMS/HCC V28) Take 1 tablet (600 mg total) by mouth 2 (two) times a day. 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 (CMS/HCC V24, CMS/HCC V28) from Last 3 Months Medical History Medical History Date Comments Seizures (CMS/HCC V24, CMS/HCC V28) Social History Tobacco Use Types Packs/Day [...] Sign Reading Time Taken Comments Blood Pressure 117/70 05/19/2025 10:54 AM EDT Pulse 63 05/19/2025 10:54 AM EDT Temperature 36.4 C (97.5 F) 05/19/2025 10:54 AM EDT Respiratory Rate 18 03/06/2025 7:48 AM EDT Oxygen Saturation 97% 05/19/2025 10:54 AM EDT Inhaled Oxygen Concentration - - Weight 81 kg (178 lb 9.6 oz) 05/19/2025 10:54 AM EDT Height 172.7 cm (5' 8 ) 05/19/2025 10:54 AM EDT Body Mass Index 27.16 05/19/2025 10:54 AM EDT Plan of Treatment Upcoming Encounters Date Type Department Care Team (Late st Contact Info) Description 10/13/2025 8:00 AM EST Office Visit Neurology - [address] [place] [id number] [facility]o [facility] [address] [address] [place] [address] 12/01/2025 9:00 AM EST Office Visit [facility] [place] [address] [place] [address] Jeimy Durand PA [address] [place] [address] Health Maintenance Due Date Last Done Comments Hepatitis A Vaccines (1 of 2 - Risk 2-dose series) 1999 Hepatitis B Vaccines (1 of 3 - 19+ 3-dose series) 1999 Depression Screening 11/26/2024 Cholesterol Screening (Lipid Panel) 12/22/2024 HIV Screening 12/22/2024 Hepatitis C Screening 12/22/2024 Social Influencers of Health Screening 12/22/2024 COVID-19 Vaccine ( - 2023-2 5 season) 2025 Influenza Vaccine (#1) 2025 DTaP,Tdap,and Td Vaccines (3 - Td or Tdap) 07/09/2034 07/09/2024, 09/11/2016 RSV Immunization Adult Patients (1 - 1-dose 75+ series) 2055 HIB Vaccines Aged Out No longer eligi [...] 5 Years) and At-Risk Patients (6 to 49 Years) Aged Out No longer eligible b ased on patient's age to complete this topic RSV Immunization Patients Under 20 months Aged Out No longer eligible b ased on patient's age to complete this topic Varicella Vaccines Aged Out No longer eligible based on patient's age to complete this topic Procedures Procedure Name Priority Date/Time Associated Diagnosis Comments CBC WITH AUTO DIFFERENTIAL Routine 06/12/2025 7:49 AM EDT Localization-relat ed focal epilepsy with complex partial seizures (CMS/HCC V24, CMS/HCC V28) ZONISAMIDE LEVEL Routine 06/12/2025 7:49 AM EDT Localization-relat ed focal epilepsy with complex partial seizures (CMS/HCC V24, CMS/HCC V28) OXCARBAZEPINE LEVEL Routine 06/12/2025 7 :49 AM EDT Localization-relat ed focal epilepsy with complex partial seizures (CMS/HCC V24, CMS/HCC V28) COMPREHENSIVE METABOLIC PANEL Routine 06/12/2025 7:49 AM EDT Localization-relat ed focal epilepsy with complex partial seizures (CMS/HCC V24, CMS/HCC V28) CBC AND DIFFERENTIAL Routine 06/12/2025 7:49 AM EDT Localization-relat ed focal epilepsy with complex partial seizures (CMS/HCC V24, CMS/HCC V28) from Last 3 Months Results * (ABNORMAL) CBC auto differential (06/12/2025 7:49 AM EDT) [facility] WBC 4.7(L) 4.8 - 10.8 K/mcL LAB HEMETOLOGY METHOD 06/12[facility]2025 10:[facility] RBC 4.90 4.50 - 5.50 M/mcL LAB HEMETOLOGY METHOD 06/12/2025 10:34 [facility] Hemoglobin 13.6 13.5 - 17.5 g/dL LAB HEMETOLOGY METHOD 06/12/2025 10:34 AM EDT [facility] Hematocrit 43.1 42.0 - 54.0 % LAB HEMETOLOGY METHOD 06/12/2025 10:34 AM [facility] MCV 87.8 79.0 - 98.0 FL LAB HEMETOLOGY METHOD 06/12/2025 10:34 AM [facility] MCH 27.7 27.0 - 32.0 pcg LAB HEMETOLOGY METHOD 06/12/2025 10:34 AM [facility] MCHC 31.6(L) 32.0 - 37.0 g/dL LAB HEMETOLOGY METHOD 06/12/2025 10:34 AM [facility] RDW 13.5 11.0 - 15.0 % LAB HEMETOLOGY METHOD 06/12/2025 10:34 AM [facility] Platelets 225 130 - 400 K/mcL LAB HEMETOLOGY METHOD 06/12/2025 10:34 [facility] MPV 9.4 7.0 - 11.0 FL LAB HEMETOLOGY METHOD 06/12/2025 10:34 [facility] NRBC 0.0 <1.0 % LAB HEMETOLOGY METHOD 06/12/2025 10:34 [facility] NRBC Absolute 0.00 <0.10 K/mcL LAB HEMETOLOGY METHOD 06/12/2025 10:34 AM [facility] Neutrophils Relative 54.2 % LAB HEMETOLOGY METHOD 06/12/2025 10:34 AM [facility] Lymphocytes Relative 29.3 % LAB HEMETOLOGY METHOD 06/12/2025 10:34 AM [facility] Monocytes Relative 11.5 % LAB HEMETOLOGY METHOD 06/12/2025 10:34 AM [facility] Eosinophils Relative 3.0 % LAB HEMETOLOGY METHOD 06/12/2025 10:34 AM [facility] Basophils Relative 1.1 % LAB HEMETOLOGY METHOD 06/12/2025 10:34 AM [facility] Immature Granulocytes Relative 0.9 % LAB HEMETOLOGY METHOD 06/12/2025 10:34 AM [facility] Neutrophils Absolute 2.54 1.50 - 7.00 K/mcL LAB HEMETOLOGY METHOD 06/12/2025 10:34 AM [facility] Lymphocytes Absolute 1.37 1.00 - 5.00 K/mcL LAB HEMETOLOGY METHOD 06/12/2025 10:34 AM [facility] Monocytes Absolute 0.54 0.20 - 1.00 K/mcL LAB HEMETOLOGY METHOD 06/12/2025 10:34 AM [facility] Eosinophils Absolute 0.14 0.00 - 0.50 K/mcL LAB HEMETOLOGY METHOD 06/12/2025 10:34 AM [facility] Basophils Absolute 0.05 0.00 - 0.20 K/mcL LAB HEMETOLOGY METHOD 06/12/2025 10:34 AM [facility] Immature Granulocytes Absolute 0.04(H) 0.00 - 0.03 K/mcL LAB HEMETOLOGY METHOD 06/12/2025 10:34 AM EDT [facility] Blood Venous blood specimen / Unknown Venipuncture / Unknown 06/12/2025 7:49 AM EDT 06/12/2025 7:49 AM EDT Sigifredo Tim MD LAB BLOOD ORDERABLES Final Resu lt Performing Organization Address City/[facility]/ZIP Co de Phone Number [facility] ([facility]) [facility] [address] [place] [address], * Zonisamide level (06/12/2025 7:49 AM EDT) Zonisamide (Zonegran) 16 10 - 40 ug/mL 06/16/2025 12:34 PM EDT [facility] Comment: Zonisamide toxic level: >100 ug/mL If applicable, any drug confirmation testing reported here was developed and the performance characteristics determined by [facility]. This confirmation testing has not been cleared or approved by the FDA. The laboratory is regulated under CLIA as qualified to perform high-complexity testing. This test is used for patient testing purposes. It should not be regarded as investigational or for research. Test performed at [facility], [address] , [place] [address] Jonna Cordon MD, PhD - Zipper Slide Attacher Blood Venous blood specimen / Unknown Venipuncture / Unknown 06/12/2025 7:49 AM EDT 06/12/2025 7:49 AM EDT Sigifredo Tim MD LAB BLOOD ORDERABLES Final Resu lt [facility] [address] [place] [address] * (ABNORMAL) Oxcarbazepine level (06/12/2025 7:49 AM EDT) Oxcarbazepine 9.8(L) 10 - 35 ug/mL 06/16/2025 12:34 PM EDT [facility] Comment: If applicable, any drug confirmation testing reported here was developed and the performance characteristics determined by [facility]. This confirmation testing has not been cleared or approved by the FDA. The laboratory is regulated under CLIA as qualified to perform high-complexity testing. This test is used for patient testing purposes. It should not be regarded as investigational or for research. Test performed at [facility], [address] , [place] [address] Jonna Cordon MD, PhD - Zipper Slide Attacher Blood Venous blood specimen / Unknown Venipuncture / Unknown 06/12/2025 7:49 AM EDT 06/12/2025 7:49 AM EDT us Sigifredo Tim MD LAB BLOOD ORDERABLES Final Resu lt [facility] [address] [place] [address] * (ABNORMAL) Comprehensive metabolic panel (06/12/2025 7:49 AM EDT) Sodium 142 133 - 145 mmol/L LAB CHEMISTRY METHOD 06/12/2025 11:07 AM [facility] Potassium 4.0 3.5 - 5.5 mmol/L LAB CHEMISTRY METHOD 06/12/2025 11:07 AM [facility] Chloride 112(H) 96 - 110 mmol/L LAB CHEMISTRY METHOD 06/12/2025 11:07 AM [facility] CO2 26 21 - 32 mmol/L LAB CHEMISTRY METHOD 06/12/2025 11:07 AM [facility] Anion Gap 4 3 - 11 LAB CHEMISTRY METHOD 06/12/2025 11:07 AM [facility] Glucose 75 70 - 100 mg/dL LAB CHEMISTRY METHOD 06/12/2025 11:07 AM [facility] BUN 13 5 - 25 mg/dL LAB CHEMISTRY METHOD 06/12/2025 11:07 AM [facility] Creatinine 1.29 0.70 - 1.30 mg/dL LAB CHEMISTRY METHOD 06/12/2025 11:07 AM [facility] eGFR 70 >=60 mL/min/1. 73m2 LAB CHEMISTRY METHOD 06/12/2025 11:07 AM [facility] Comment:Calculation based on the Chronic Kidney Disease Epidemiology Collaboration (CKD-EPI) equation refit without adjustment for race. BUN/Creatinine Ratio 10.1 LAB CHEMISTRY METHOD 06/12/2025 11:07 AM [facility] Calcium 8.5 8.5 - 10.5 mg/dL LAB CHEMISTRY METHOD 06/12/2025 11:07 AM [facility] AST (SGOT) 18 10 - 42 unit/L LAB CHEMISTRY METHOD 06/12/2025 11:07 AM [facility] ALT (SGPT) 38 10 - 60 unit/L LAB CHEMISTRY METHOD 06/12/2025 11:07 AM [facility] Alkaline Phosphatase 122(H) 42 - 121 unit/L LAB CHEMISTRY METHOD 06/12/2025 11:07 AM [facility] Total Protein 6.4 6.0 - 8.0 g/dL LAB CHEMISTRY METHOD 06/12/2025 11:07 AM [facility] Albumin 3.8 3.2 - 5.0 g/dL LAB CHEMISTRY METHOD 06/12/2025 11:07 AM [facility] Total Bilirubin 0.3 0.0 - 1.4 mg/dL LAB CHEMISTRY METHOD 06/12/2025 11:07 AM [facility] Blood Venous blood specimen / Unknown Venipuncture / Unknown 06/12/2025 7:49 AM EDT 06/12/2025 7:49 AM EDT us Sigifredo Tim MD LAB BLOOD ORDERABLES Final Resu lt [facility] [address] [place] [address], [place] [phone] from Last 3 Months Insurance [facility] Advance Directives * Full Code - Confirmed (Latest Code Status on File) Date Activated Date Inactivated Comments 03/02/2025 10:36 AM 03/06/2025 3:[address] [facility] was ascertained in the following way: Code status discussion: discussion with patient To update the patient's code status, place a code status order. Do not modify or discontinue any currently active code status orders. Care Teams Hooker Inspector Relationship Specialty Start Date End Date Toby Edouard DO [address] [facility] [address] [facility] [place] [address] PCP - General Internal Medicine 12/22/24
--- OUTSIDE RECORDS SUMMARY | 2025-08-24 18:00 | XMS_ITS | Clinical Summary ---
Author Organization [facility] Address [address] [facility] [address] [place] [phone] Phone Care Team Providers Care Incinerator Plant Supervisor Name Role Phone Unknown, Unknown Primary Care Provider Edward lopez Allergies Active Allergy Reactions Criticality Noted Date Comments Lactose 07/09/2024 Medications zonisamide (ZONEGRAN) 100 MG capsule Take 300 mg by mouth. 04/20/2024 Active Active Problems No known active problems Immunizations Immunization Administration Dates Next Due Tdap 07/09/2024,09/11/2016 Social History Tobacco Use Types Packs/Day Years Used Date Smoking Tobacco: Never Smokeless Tobacco: Never Tobacco Cessation:Counseling Given: Not Answered Education Answer Date Recorded Are you interested in more education? Not on juhi e 07/13/2023 Are you concerned about learning? Not on file 07/13/2023 No 07/13/2023 No 07/13/2023 Digital Access Answer Date Recorded No 07/13/2023 No 07/13/2023 Reliable internet access at home? Not on file 07/13/2023 Device with a working camera? Not on file Sex and Gender Information Value Date Recorded Sex Assigned at Not on file Legal Sex Male 11:13 AM EDT Gender Identity Not on file Sexual Orientation Not on file Last Filed Vital Signs Vital Sign Reading Time Taken Comments Blood Pressure 120/77 07/09/2024 5:05 PM EDT Pulse 56 07/09/2024 5:05 PM EDT Temperature 36.8 C (98.2 F) 07/09/2024 5:05 PM EDT Respiratory Rate 16 07/09/2024 5:05 PM EDT Oxygen Saturation 100% 07/09/2024 5:05 PM EDT Inhaled Oxygen Concentration - - Weight 90.7 kg (200 lb) 07/09/2024 5:05 PM EDT Height 172.7 cm (5' 8 ) 07/09/2024 5:05 PM EDT Body Mass Index 30.41 07/09/2024 5:05 PM EDT Plan of Treatment Upcoming Encounters Date Type Department Care Team (Late st Contact Info) Description 12/28/2025 11:30 AM EST Office Visit [facility] Neurology [address] [place] [address] Christiano Acosta MD [address] [place] [address], 2nd [place] [address] [email or web address] 02/23/2026 3:00 PM EDT Office Visit [facility] Medicine [address] [place] [address] D[address] [facility], [address] [place] [address] [email or web address] Health Maintenance Due Date Last Done Comments LIPID PANEL 1980 DEPRESSION SCREENING 1992 HEPATITIS C SCREENING 1998 HIV ONE-TIME SCREENING (18-6 5 YEARS) 1998 SMOKING STATUS SCREENING (On ce After 26 Yrs) 2006 INFLUENZA VACCINE (#1) 2025 09/11/2016 COVID-19 VACCINE (2024-2 6 season) 2025 07/31/2023, 06/22/2021, 05/25/2021 SCREENING FOR DIABETES 08/28/2026 08/28/2023 Adult Td,Tdap Booster 07/09/2034 07/09/2024 , 09/11/2016 HEPATITIS A VACCINES Aged Out No long er eligible based on patient's age to complete this topic HIB VACCINES Aged Out No longer eligi ble based on patient's age to complete this topic MENINGOCOCCAL VACCINES (ACWY) Aged Out No longer eligible based on patient's age to complete this topic MENINGOCOCCAL VACCINES (B) Aged Out N o longer eligible based on patient's age to complete this topic PNEUMOCOCCAL VACCINES (0-49 years) Aged Out No longer eligible b ased on patient's age to complete this topic Medical Devices Not on file Insurance WELLSENSE NON NSPG PCP [employer] CONNE[employer]CARE WELLSENSE NON NSPG PCP [employer] WELLSENSE NON NSPG PCP [employer] WELLSENSE NON NSPG PCP S[employer]VER [employer] CONNE[employer] WELLSENSE NON NSPG PCP S[employer] CONNE[employer] WELLSENSE NON NSPG PCP [employer] Care Teams Incinerator Plant Supervisor Relationship Specialty Start Date End Date Unknown, Unknown, PCP - General 07/09/24 Additional Source Comments The information contained in this document represents components of the legal health record. It is not the complete legal health record.[facility]
--- OUTSIDE RECORDS SUMMARY | 2025-08-24 18:00 | XMS_ITS ---
[facility] Name [facility] Organization Unknown Results Test Name/Text Value Interpretation Date Range Source Zonisamide SerPl-mCnc 19.0 ug/mL Normal 03/06/2025 10 - 40 [facility] Glucose SerPl-mCnc 88.0 mg/dL Normal 03/02/2025 70 - 199 [facility] Potassium SerPl-sCnc 3.5 mmol/L Normal 03/02/2025 3.5 - [address]1 [facility] BUN SerPl-mCnc 16.0 mg/dL Normal 03/02/2025 9 - 20 [facility] ALP SerPl-cCnc 61.0 unit/L Normal 03/02/2025 34 - 104 CT [facility] Bilirub SerPl-mCnc 0.5 mg/dL Normal 03/02/2025 0.3 - 1 [facility] BUN/Creat SerPl 12.3 Normal 03/02/2025 12 - 20 [facility] Anion Gap SerPl-sCnc 7.0 Normal 03/02/2025 5 - 14 [facility] CO2 SerPl-sCnc 25.0 mmol/L Normal 03/02/2025 24 - 32 CT [facility] Prot SerPl-mCnc 6.5 g/dL Normal 03/02/2025 6.4 - 8.5 CT_ [facility] Sodium SerPl-sCnc 140.0 mmol/L Normal 03/02/2025 135 - 14 5 [facility] eGFRcr SerPlBld CKD-EPI 2020 69.0 mL/min/1.73m2 Normal 03/02/2025 - [facility] Calcium SerPl-mCnc 9.1 mg/dL Normal 03/02/2025 8.4 - 10.2 [facility] Creat SerPl-mCnc 1.3 mg/dL Normal 03/02/2025 0.7 - 1.3 CT [facility] AST SerPl-cCnc 18.0 unit/L Normal 03/02/2025 5 - 40 CT [facility] Albumin SerPl-mCnc 4.3 g/dL Normal 03/02/2025 3.5 - 5 [facility] ALT SerPl-cCnc 22.0 unit/L Normal 03/02/2025 7 - 52 CT [facility] Chloride SerPl-sCnc 108.0 mmol/L Above high normal 98 - 107 [facility] History of Medication Use Medication Directions Dispensed Refills Start Date End Date [facility] OXcarbazepine (TRILEPTAL) 600 mg tablet Take 1 tablet (600 mg total) by mouth 1 (one) time each day in the morning AND 1.5 tablets (900 mg total) at bedtime. 08/18/2025 active zonisamide (ZONEGRAN) 100 mg capsule Take 2 capsules (200 mg total) by mouth 1 (one) time each day in the morning AND 1 capsule (100 mg total) at bedtime. 08/18/2025 active OXcarbazepine (TRILEPTAL) 600 mg tablet Take 1 tablet (600 mg total) by mouth 2 (two) times a day. 06/17/2025 aborted Vitamin D3 25 mcg (1,000 unit) capsule Take 1 capsule (1,000 Units total) by mouth 1 (one) time each day. 05/12/2025 active OXcarbazepine (TRILEPTAL) 150 mg tablet Take 1 tablet (150 mg total) by mouth 2 (two) times a day. Take together with 300mg tablet for total of 450mg twice per day 05/05/2025 active cenobamate (Xcopri Titration Pack) 50 mg (14)- 100 mg (14) tablets,dose pack TAKE DIRECTED , Then take 1 tablet (100 mg) by mouth 1 (one) time each day 04/03/2025 active OXcarbazepine (TRILEPTAL) 300 mg tablet Take 1 tablet (300 mg total) by mouth 2 (two) times a day. Take together with 150mg tablet for total dose of 450mg twice per day. 04/03/2025 active cenobamate (Xcopri Titration Pack) 12.5 mg (14)- [...] repeat X1 in 24 hours 10/14/2024 active Allergies Allergen Reaction Severity Comment Documented Date Source Statu s LACTOSE 07/09/2024 [facility] active Problems Problem Status Onset Date Problem Type Date of Resoluti on Source Seizure ([facility] V24, [facility] V28) active 2025-02-20 Problem[address] [facility] Breakthrough seizure (CMS/HCC V24, CMS/[facility] V28) active 2025-03-02 Problem[address] [facility] Breakthrough seizure ([facility] V24, [facility] V28) active 2025-03-02 ProblemAct [facility] Encounters Encounter Type Encounter Reason Primary Diagnosis Location Date [facility] 08/18/2025 Ambulatory [facility] 05/05/2025 Inpatient Unspecified convulsions ([facility] V24, [facility] V28) Unspecified convulsions ([facility] V24, [facility] V28) [facility] 03/04/2025 Ambulatory Seizures Unspecified convulsions [facility] 02/19/2025 Care Team Organization Name Specialty Phone Email Start Date End Da te [facility] Care 02/24/2025 [facility] Primary Care 02/19/2025
--- OUTSIDE RECORDS SUMMARY | 2025-08-24 18:00 | XMS_ITS ---
Author Organization [facility] Address [address] [place] [address] Phone Care Team Providers Care Gl Accountant Name Role Phone Toby Edouard DO Primary Care Provider Transitional Care Management Status:Identified (Enrolling) Start date:03/09/2025 Related social drivers of health:Housing Instability, Food Access & Nutrition, Access to Healthcare, Health Literacy, Financial Risk, Transportation, Social Isolation, Food Risk, Dependent Care, Education, Employment and Income, [place] Health Literacy, Living Situation Case Team Name Relationship Phone Cheri Tim MA(Responsible Staff) Continued Care and Services Coordination
== END 2025-08-24 17:04 | disposition home or self-care (01) ==
LOC: HO.HMCH 15:55
DX: A60.02 Herpesviral infection of other male genital organs (principal)

== ENCOUNTER → 2025-08-24 15:54 | Outpatient (BNVA) | payer OTHER, SELFPAY | DX: A60.02 Herpesviral infection of other male genital organs (principal) | CPT/HCPCS: 99212 ==

== ENCOUNTER 2025-08-25 10:28 | Outpatient (REF) | payer OTHER, SELFPAY ==
--- OUTSIDE RECORDS SUMMARY | 2025-08-25 11:44 | XMS_ITS | Clinical Summary ---
Author Organization [facility] Address [address] [place] [address] Phone Care Team Providers Care Assistant Women'S Basketball Coach Name Role Phone Toby Edouard DO Primary [...] 9:40 AM EDT Office Visit Neurology - [address] [place] [address] Sigifredo Tim MD Seizure (CMS/HCC [...] 8:00 AM EST Office Visit Neurology - [address] [place] [phone] Sigifredo Tim MD [address] [facility] [address] [place] [address] 12/01/2025 9:00 AM EST Office Visit [facility] [place] [address] [place] [address] Jeimy Durand PA [address] [place] [address] Health Maintenance Due Date Last Done Comments [...] CBC auto differential (06/12/2025 7:49 AM EDT) [facility] WBC 4.7(L) 4.8 - 10.8 K/mcL LAB HEMETOLOGY METHOD 06/12[facility]2025 10[facility] RBC 4.90 4.50 - 5.50 M/mcL LAB HEMETOLOGY METHOD 06/12/2025 10:34 [facility] Hemoglobin 13.6 13.5 - 17.5 g/dL LAB HEMETOLOGY METHOD 06/12/2025 10:34 AM EDT [facility] Hematocrit 43.1 42.0 - 54.0 % LAB HEMETOLOGY METHOD 06/12/2025 10:34 AM [facility] MCV 87.8 79.0 - 98.0 FL LAB HEMETOLOGY METHOD 06/12/2025 10:34 AM [facility] MCH 27.7 27.0 - 32.0 pcg LAB HEMETOLOGY METHOD 06/12/2025 10:34 AM [facility] MCHC 31.6(L) 32.0 - 37.0 g/dL LAB HEMETOLOGY METHOD 06/12/2025 10:34 AM [facility] RDW 13.5 11.0 - 15.0 % LAB HEMETOLOGY METHOD 06/12/2025 10:34 AM [facility] Platelets 225 130 - 400 K/mcL LAB HEMETOLOGY METHOD 06/12/2025 10:34 [facility] MPV 9.4 7.0 - 11.0 FL LAB HEMETOLOGY METHOD 06/12/2025 10:34 [facility] NRBC 0.0 <1.0 % LAB HEMETOLOGY METHOD 06/12/2025 10:34 [facility] NRBC Absolute 0.00 <0.10 K/mcL LAB HEMETOLOGY METHOD 06/12/2025 10:34 AM [facility] Neutrophils Relative 54.2 % LAB HEMETOLOGY METHOD 06/12/2025 10:34 AM [facility] Lymphocytes Relative 29.3 % LAB HEMETOLOGY METHOD 06/12/2025 10:34 AM [facility] Monocytes Relative 11.5 % LAB HEMETOLOGY METHOD 06/12/2025 10:34 AM [facility] Eosinophils Relative 3.0 % LAB HEMETOLOGY METHOD 06/12/2025 10:34 AM [facility] Basophils Relative 1.1 % LAB HEMETOLOGY METHOD 06/12/2025 10:34 AM [facility] Immature Granulocytes Relative 0.9 % LAB HEMETOLOGY METHOD 06/12/2025 10:34 AM [facility] Neutrophils Absolute 2.54 1.50 - 7.00 K/mcL LAB HEMETOLOGY METHOD 06/12/2025 10:34 AM [facility] Lymphocytes Absolute 1.37 1.00 - 5.00 K/mcL LAB HEMETOLOGY METHOD 06/12/2025 10:34 AM [facility] Monocytes Absolute 0.54 0.20 - 1.00 K/mcL LAB HEMETOLOGY METHOD 06/12/2025 10:34 AM [facility] Eosinophils Absolute 0.14 0.00 - 0.50 K/mcL LAB HEMETOLOGY METHOD 06/12/2025 10:34 AM [facility] Basophils Absolute 0.05 0.00 - 0.20 K/mcL LAB HEMETOLOGY METHOD 06/12/2025 10:34 AM [facility] Immature Granulocytes Absolute 0.04(H) 0.00 - 0.03 K/mcL LAB HEMETOLOGY METHOD 06/12/2025 10:34 AM EDT [facility] Blood Venous blood specimen / Unknown Venipuncture / Unknown 06/12/2025 7:49 AM EDT 06/12/2025 7:49 AM EDT Sigifredo Tim MD LAB BLOOD ORDERABLES Final Resu lt Performing Organization Address City/[facility]/ZIP Co de Phone Number [facility] [address] [place] [address], * Zonisamide level (06/12/2025 7:49 AM EDT) Zonisamide (Zonegran) 16 10 - 40 ug/mL 06/16/2025 12:34 PM EDT [facility] Comment: Zonisamide toxic level: >100 ug/mL If applicable, any drug confirmation testing reported here was developed and the performance characteristics determined by [facility]. This confirmation testing has not been cleared or approved by the FDA. The laboratory is regulated under CLIA as qualified to perform high-complexity testing. This test is used for patient testing purposes. It should not be regarded as investigational or for research. Test performed at [facility], [email or web address] , [place] [address] Jonna Cordon MD, PhD - Dry Cure Worker Blood Venous blood specimen / Unknown Venipuncture / Unknown 06/12/2025 7:49 AM EDT 06/12/2025 7:49 AM EDT Sigifredo Tim MD LAB BLOOD ORDERABLES Final Resu lt [facility] [address] [place] [address] * (ABNORMAL) Oxcarbazepine level (06/12/2025 7:49 AM EDT) Oxcarbazepine 9.8(L) 10 - 35 ug/mL 06/16/2025 12:34 PM EDT [facility] Comment: If applicable, any drug confirmation testing reported here was developed and the performance characteristics determined by [facility]. This confirmation testing has not been cleared or approved by the FDA. The laboratory is regulated under CLIA as qualified to perform high-complexity testing. This test is used for patient testing purposes. It should not be regarded as investigational or for research. Test performed at [facility], [address] , [place] [address] Jonna Cordon MD, PhD - Dry Cure Worker Blood Venous blood specimen / Unknown Venipuncture / Unknown 06/12/2025 7:49 AM EDT 06/12/2025 7:49 AM EDT us Sigifredo Tim MD LAB BLOOD ORDERABLES Final Resu lt [facility] [address] [place] [address] * (ABNORMAL) Comprehensive metabolic panel (06/12/2025 7:49 AM EDT) Sodium 142 133 - 145 mmol/L LAB CHEMISTRY METHOD 06/12/2025 11:07 AM [facility] Potassium 4.0 3.5 - 5.5 mmol/L LAB CHEMISTRY METHOD 06/12/2025 11:07 AM [facility] Chloride 112(H) 96 - 110 mmol/L LAB CHEMISTRY METHOD 06/12/2025 11:07 AM [facility] CO2 26 21 - 32 mmol/L LAB CHEMISTRY METHOD 06/12/2025 11:07 AM [facility] Anion Gap 4 3 - 11 LAB CHEMISTRY METHOD 06/12/2025 11:07 AM [facility] Glucose 75 70 - 100 mg/dL LAB CHEMISTRY METHOD 06/12/2025 11:07 AM [facility] BUN 13 5 - 25 mg/dL LAB CHEMISTRY METHOD 06/12/2025 11:07 AM [facility] Creatinine 1.29 0.70 - 1.30 mg/dL LAB CHEMISTRY METHOD 06/12/2025 11:07 AM [facility] eGFR 70 >=60 mL/min/1. 73m2 LAB CHEMISTRY METHOD 06/12/2025 11:07 AM [facility] Comment:Calculation based on the Chronic Kidney Disease Epidemiology Collaboration (CKD-EPI) equation refit without adjustment for race. BUN/Creatinine Ratio 10.1 LAB CHEMISTRY METHOD 06/12/2025 11:07 AM [facility] Calcium 8.5 8.5 - 10.5 mg/dL LAB CHEMISTRY METHOD 06/12/2025 11:07 AM [facility] AST (SGOT) 18 10 - 42 unit/L LAB CHEMISTRY METHOD 06/12/2025 11:07 AM [facility] ALT (SGPT) 38 10 - 60 unit/L LAB CHEMISTRY METHOD 06/12/2025 11:07 AM [facility] Alkaline Phosphatase 122(H) 42 - 121 unit/L LAB CHEMISTRY METHOD 06/12/2025 11:07 AM [facility] Total Protein 6.4 6.0 - 8.0 g/dL LAB CHEMISTRY METHOD 06/12/2025 11:07 AM [facility] Albumin 3.8 3.2 - 5.0 g/dL LAB CHEMISTRY METHOD 06/12/2025 11:07 AM [facility] Total Bilirubin 0.3 0.0 - 1.4 mg/dL LAB CHEMISTRY METHOD 06/12/2025 11:07 AM [facility] Blood Venous blood specimen / Unknown Venipuncture / Unknown 06/12/2025 7:49 AM EDT 06/12/2025 7:49 AM EDT us Sigifredo Tim MD LAB BLOOD ORDERABLES Final Resu lt [facility] [address] [place] [address], [place] [phone] from Last 3 Months Insurance [facility] Advance Directives * Full Code [...] currently active code status orders. Care Teams Assistant Women'S Basketball Coach Relationship Specialty Start Date End Date Toby Edouard DO [address] [facility] [address] [facility] [place] [place] [address] PCP - General Internal Medicine 12/22/24
--- OUTSIDE RECORDS SUMMARY | 2025-08-25 11:44 | XMS_ITS | Clinical Summary ---
Author Organization [facility] Address [address] [facility] [address] [place] [address] Phone Care Team Providers Care Hire Car Driver Name Role Phone Unknown, Unknown Primary Care [...] Description 12/28/2025 11:30 AM EST Office Visit [facility] Neurology [address] [place] [address] Christiano Acosta MD [address] [place] [address], 2nd [place] [address] [email or web address] 02/23/2026 3:00 PM EDT Office Visit [facility] [address] [place] [address] Doretha Garcia [address] [facility] [place] [address] [email or web address] Health Maintenance Due Date Last Done [...] WELLSENSE NON NSPG PCP [place] [address] Care Teams Hire Car Driver Relationship Specialty Start Date End Date Unknown, Unknown, PCP - General 07/09/24 Additional Source Comments The information contained in this document represents components of the legal health record. It is not the complete legal health record.[facility]
--- OUTSIDE RECORDS SUMMARY | 2025-08-25 11:44 | XMS_ITS | Clinical Summary ---
Author Organization [facility] Address [address] [facility], [facility] [address] [place] [address] Care Team Providers Care Director Industrial Relations Name Role Phone Jeff Odom MD Primary Care Provider [phone] Allergies Active Allergy Reactions Criticality Noted Date Comments Lactase Cough,Diarrhea 07/27/2014 Medications zonisamide (Zonegran) 100 mg capsuleIndicati ons:Seizures Take 3 caps at bedtime. 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 Never 10/01/2023 Q2: How many drinks containi ng alcohol do you have on a typical day when you are drinking? Patient does not drink Q3: How often do you have si x or more drinks on one occasion? Never 10/01/2023 Sex and Gender Information Value Date Recorded Sex Assigned at Male 06/05/2022 10:07 PM EDT Legal Sex Male 11:33 AM EDT Gender Identity Male 06/05/2022 10:07 PM EDT Sexual Orientation Straight 06/05/2022 10 :07 PM EDT Last Filed Vital Signs Vital Sign Reading Time Taken Comments Blood Pressure 111/66 08/06/2024 10:34 AM EDT Pulse 60 08/06/2024 10:34 AM EDT Temperature 36.7 C (98 F) 08/06/2024 10:34 AM EDT Respiratory Rate 18 08/06/2024 10:34 AM EDT Oxygen Saturation 98% 08/06/2024 10:34 AM EDT Inhaled Oxygen Concentration - - Weight 81.4 kg (179 lb 6.4 oz) 08/06/2024 10:34 AM EDT Height 172 cm (5' 7.72 ) 08/06/2024 10:34 AM EDT Body Mass Index 27.51 08/06/2024 10:34 AM EDT Plan of Treatment Health Maintenance Due Date Last Done Comments HIV Screening 1980 Lipid Panel 1980 MMR Vaccines (1 of 1 - Standard series) 1981 Hepatitis C Screening 1998 Hepatitis A Vaccines (1 of 2 - Risk 2-dose series) 1999 Hepatitis B Vaccines (1 of 3 - 19+ 3-dose series) 1999 HPV Vaccines (1 - 3-dose SCD M series) 2007 Depression Screening 11/26/2024 COVID-19 Vaccine (4 - 2024-2 6 season) 2025 07/31/2023, 06/22/2021, 05/25/2021 Influenza Vaccine (#1) 2025 09/11/2016 Diabetes Screening 11/14/2025 11/14/2022 DTaP/Tdap/Td Vaccines (3 - T d or Tdap) 07/09/2034 07/09/2024, 09/11/2016 HIB Vaccines Aged Out No longer eligi ble based on patient's age to complete this topic IPV Vaccines Aged Out No longer eligi ble based on patient's age to complete this topic Meningococcal B Vaccine Aged Out No l onger eligible based on patient's age to complete this topic Meningococcal Vaccine Aged Out No anita luis eligible based on patient's age to complete this topic Pneumococcal Vaccine: Pediatrics (0 to 5 Years) and At-Risk Patients (6 to 49 Years) Aged Out No longer eligible b ased on patient's age to complete this topic Rotavirus Vaccines Aged Out No longer eligible based on patient's age to complete this topic Procedures Procedure Name Priority Date/Time Associated Diagnosis Comments GLUCOSE Routine 11/14/2022 3:35 PM EST Episode of transient neurologic symptoms Porphyrins urinary excretion incr from Last 3 Months or Most Recently Relevant to Health Maintenance Results * (ABNORMAL) Glucose (11/14/2022 3:35 PM EST) Glucose 68(L) 70 - 139 mg/dL 11/14/2022 6:12 PM EST [facility] Fasting? Unknown [facility] IN[facility] 11/14/2022 6:12 PM EST [facility] Blood Venous blood specimen / Unknown Venipuncture / Unknown 11/14/2022 3:35 PM EST 11/14/2022 4:27 PM EST us Carlos Urbano FISH ROE PROCESSOR LAB BLOOD ORDERABLES Final Resul t [facility] [address] [place] [address], from Last 3 Months or Most Recently Relevant to Health Maintenance Advance Directives * Full Code (Latest Code Status on File) Date Activated Date Inactivated Comments 10/01/2023 4:46 PM 10/04/2023 6:44 PM Care Teams Director Industrial Relations Relationship Specialty Start Date End Date Jeff Odom MD [address] [place] [phone] PCP - General Health Policy Manager 09/26/22
--- OUTSIDE RECORDS SUMMARY | 2025-08-25 11:44 | XMS_ITS ---
Author Organization [facility] Address [address] [place] [address] Phone Care Team Providers Care Laundry Marker Supervisor Name Role Phone Toby Edouard DO Primary Care Provider Transitional Care Management Status:Identified (Enrolling) Start date:03/09/2025 Related social drivers of health:Housing Instability, Food Access & Nutrition, Access to Healthcare, Health Literacy, Financial Risk, Transportation, Social Isolation, Food Risk, Dependent Care, Education, Employment and Income, [place] Health Literacy, Living Situation Case Team Name Relationship Phone Cheri Tim MA(Responsible Staff) Continued Care and Services Coordination
[2025-08-25 11:56] LABS: Appearance Urine Cloudy; Glucose Urine UA Negative (Negative); PH 8.0 (5.0-9.0); Specific Gravity - Urine 1.015 (1.005-1.025)
[2025-08-25 12:00] LABS: Syphilis Screen Nonreactive (Nonreactive)
[2025-08-25 12:01] LABS: HIV Num 1 0.05 S/CO (0.00-0.99)
[2025-08-25 13:30] LABS: CT PCR Urine NOT DETECTED (Not Detect.); NG PCR Urine NOT DETECTED (Not Detect.)
== END 2025-08-25 10:29 | disposition home or self-care (01) ==
LOC: HO.LAB 10:28
DX: Z11.4 Encounter for screening for human immunodeficiency virus [HIV] (principal); Z01.84 Encounter for antibody response examination; A64 Unspecified sexually transmitted disease; Z20.2 Contact with and (suspected) exposure to infections with a predominantly sexual mode of transmission
CPT/HCPCS: 81003; 86695; 86696; 86780; 87389; 87491; 87591

== ENCOUNTER 2025-11-11 10:30 | Outpatient (AMB) | payer OTHER, SELFPAY ==
[2025-11-11 10:33] VITALS: BP 112/68; PULSE 61; RESP 18; O2SAT 96; BMI 28.3
--- NOTE | 2025-11-11 10:33 | A.OFFPC_ITS ---
Vital Signs 11/11/25 10:33 Height 5 ft 8 in Weight 186 lb 6 oz BMI 28.3 BP 112/68 Blood Pressure Location Lt brachial Position Sitting Respiration 18 Pulse 61 Pulse Source Pulse Oximeter Temp Source Temporal Artery Scan Pulse Oximetry (%) 96 Oxygen Delivery Method Room Air Intake Visit Reasons: seizures/anxiety/hld Functional Tester Required: No Accompanied by: Self / Same As Patient Allergies No Known Allergies Allergy (Verified 11/11/25 10:54) Medication List - Last Reconciled 11/11/25 by TESFAYE Mcdonald B-complex with vitamin C 1 tab PO DAILY cholecalciferol (vitamin D3) 25 mcg PO DAILY gabapentin 100 mg PO BEDTIME hydroxyzine HCl 50 mg PO BID oxcarbazepine 150 mg PO BID oxcarbazepine 300 mg PO BID valacyclovir 1,000 mg PO DAILY 5 days vitamin D22-ebupq acid 500-400 mcg 1 tab PO DAILY Tobacco use date assessed: 11/11/25 Dental Screening Dental Screen Date: 11/11/25 Did you have a dental visit in the last 12 months?: Yes Did you have a dental problem in the last 6 months where you did not have access to dental care?: No Was dental information given to patient?: Patient has dentist HPI HPI Comments History of Present Illness Details The patient is a 45 year old male presenting for follow-up of a skin lesion on is pubic area and management of his seizure disorder. He reports using Aldara cream for a skin lesion on his pubic area for about 2.5 weeks with minimal improvement. He notes the lesion is painful when bumped and has a greenish film on it. Regarding his seizure disorder, the patient denies any recent seizures and reports that they are better controlled. He feels much better since his neurologist switched him from Zonisamide to his current medication. However, his has observed that he experiences night sweats about once a week. The patient continues to take vitamin D supplements. He has not yet completed the blood work that was previously ordered. Health Maintenance - The patient continues vitamin D supple mentation. - Pending follow-up lab work was discuss ed. Social History Results - Labs: Prior labs were reviewed and not ed not to be critically abnormal. [facility] Medical History Bradycardia Hx of abdominal abscess Seizures Surgical History Hx of appendectomy Family History Mother Narcolepsy Bipolar disorder Anxiety Difficulty swallowing Esophageal lesion Father No problems noted. Son Absence seizure Son Speech delay Other FH: mental illness Social History Household Members: Family Housing: House Alcohol intake: never Patient Tobacco Use Status: Current someday Tobacco user (Tobacco Wrap) e-Cigarette/Vaping Use: Currently Using Substance Use Type: Marijuana service: No Current occupational status: employed Current occupation: [employer]NA[employer] Cognitive needs: No Hearing needs: No Vision needs: No Questionnaire Thrive Questionnaire Date Thrive assessed: 11/11/25 I am a: Patient What is your living situation today?: I have a steady place to live Within the past 12 months, did the food you bought not last and you didn't have the money to get more?: I choose not to answer this question Within the past 12 months, did you worry whether your food would run out before you got money to buy more?: I choose not to answer this question Do you have trouble paying for medicines?: I choose not to answer this question Do you have trouble getting transportation to medical appointments?: I choose not to answer this question Do you have trouble paying your heating and electricity bill?: I choose not to answer this question Do you have trouble taking care of your child, family member or friend?: I choose not to answer this question Do you have trouble with day-to-day activities such as bathing, preparing meals, shopping, managing finances, etc.?: No Are you currently unemployed and looking for a job?: No Are you interested in more education?: No Please select the resources that you would like help with: None Currently or been in a relationship where the following occur: I choose not to answer THRIVE Score: 0 АЛЕКСАНДР-7 AMB Questionnaire АЛЕКСАНДР-7 Date АЛЕКСАНДР - 7 assessed: 05/12/25 Source: Developed by Drs. Edu Thorne, Cynthia Das, Felipe Granado and colleagues, with an educational alva from [employer]. Review of Systems Narrative Review of Systems - Dermatologic: Reports a non-healing lesion on his ear that is sensitive when bumped and has a green film. - Neurological: Denies recent seizures. - Constitutional: Reports night sweats occurring approximately once a week, as noted by his . Const Denies body aches, Denies chills, Denies fever(s), Denies headache(s) and Denies poor appetite Eyes Reports no additional complaints ENT Denies dysphagia, Denies dizziness, Denies headache(s) and Denies odynophagia Card Denies chest pain, Denies syncope, Denies edema, Denies irregular heart rhythm, Denies lightheadedness and Denies dyspnea Resp Denies cough and Denies dyspnea GI Denies abdominal pain, Denies constipation, Denies dysphagia, Denies diarrhea, Denies nausea, Denies odynophagia and Denies vomiting Reports genital lesions, Reports genital pain and Reports dysuria Musc Reports no additional complaints and Denies abnormal gait Skin/Breast Reports other (pubic area lesions) Neuro Denies abnormal gait, Denies dizziness, Denies syncope and Denies headache(s) Psych Reports no additional complaints Physical exam (Primary Care) Vital Signs: Last Vital Signs Pulse 61 11/11/25 10:33 Resp 18 11/11/25 10:33 BP 112/68 11/11/25 10:33 Pulse Ox 96 11/11/25 10:33 Oxygen Delivery Method Room Air 11/11/25 10:33 BMI result Body Mass Index 28.3 Tobacco/Smoking Status: Tobacco use Status Tobacco use date assessed 11/11/25 11/11/25 10:34 Patient Tobacco Use Status Current someday Tobacco ( 11/11/25 10:34 Tobacco Wrap) Tobacco use type 03/20/25 15:24 e-Cigarette/Vaping Use Currently Using 11/11/25 10:34 Thrive Assessment: Date of Thrive Assessment Date Thrive assessed 11/11/25 11/11/25 10:34 Currently or been in a relationship where the following occur: I choose not to answer Narrative Physical Exam - Skin: Examination of the ear revealed an excoriated lesion with a greenish film suggestive of a superinfection. - Respiratory: Lungs are clear to auscultation bilaterally. Const General: cooperative, healthy appearing, comfortable and no acute distress Orientation/consciousness: patient oriented x3 HENMT Head: Yes normocephalic Ears: hearing grossly normal bilaterally General nose exam: Normal external nose present Eyes General: appearance normal, both eyes and all related structures Conjunctivae: conjunctivae normal Neck Neck: Yes full ROM and Yes no lymphadenopathy Resp Effort & Inspection: normal respiratory effort Auscultation: clear to auscultation bilaterally, no crackles, no rales, no rhonchi and no wheezes Cardio Rate: regular rate Rhythm: regular rhythm Skin Lesions: lesion noted (pubic area is excoriated, greenish) Neuro General: patient oriented x3 Gait exam (Neuro): Normal gait present Extrem General: Yes normal to inspection, Yes full ROM and No edema Psych Affect: normal affect Attitude: cooperative Insight: Good insight present (Psych) Judgement: Good judgement present (Psych) Coding Level of Care Code Est Pt Level 4 (27406) Diagnoses Anxiety F41.9 Bradycardia R00.1 Pure hypercholesterolemia E78.00 Hyperglycemia R73.9 Vitamin D deficiency E55.9 Seizures R56.9 Herpes genitalis in men A60.02 Time Spent (min) 36 Assessment & Plan Assessment & Plan (1) Anxiety: Code(s): F41.9 - Anxiety disorder, unspecified Category: Medical Plan: CBT encouraged The patient was referred to Psychology on his previous visit Continue hydroxyzine 50 mg b.i.d. p.r.n. (2) Bradycardia: Code(s): R00.1 - Bradycardia, unspecified Category: Medical Plan: Her rate 62 today in office. Continues to be asymptomatic (3) Pure hypercholesterolemia: Code(s): E78.00 - Pure hypercholesterolemia, unspecified Category: Medical Plan: LDL on recent labs is 102, slightly above goal-he has not completed preordered labs as yet Reinforced low-cholesterol diet and activity as tolerated We will recheck lipids in six-month (4) Hyperglycemia: Code(s): R73.9 - Hyperglycemia, unspecified Category: Medical Plan: Fasting glucose 88, A1c 5.1% on recent labs Reinforced low sugar/carbohydrate and activity as tolerated We will recheck fasting glucose in six-month (5) Vitamin D deficiency: Code(s): E55.9 - Vitamin D deficiency, unspecified Category: Medical Plan: Vitamin D22.4, has not completed preordered labs as yet Cholecalciferol 25 mcg daily ordered (6) Seizures: Code(s): R56.9 - Unspecified convulsions Category: Medical Plan: Patient seizures are fairly new to him. Reports that this started last year and has changed life completely Reports that he went to [place] for VEEG. with positive seizure activities in the left side of the temporal lobe Dr. Deras-saw him the 10th of this month and oxcarbazepine was increased to [address] Pineda, who had referred to him to Dr. Deras. Follow up with Neurology as scheduled (7) Herpes genitalis in men: Code(s): A60.02 - Herpesviral infection of other male genital organs Category: Medical Plan: The patient's skin lesion on the ear appears to have a secondary bacterial infection, as it is excoriated and has a green film, despite treatment with A ldara. Mupirocin ointment will be prescribed for twice-daily application. The patient should call in one week if there is no improvement, as oral antibiotics may be required. If needed, an antifungal powder may be considered later to keep the area dry. He was also advised to finish the course of pills previously ordered. Plan Plan Patient was informed and verbally consented to the use of an ambient scribe for clinic note documentation during this visit. 1. Infected Skin Lesion The patient's skin lesion on the ear appears to have a secondary bacterial infection, as it is excoriated and has a green film, despite treatment with Aldara. Mupirocin ointment will be prescribed for twice-daily application. The patient should call in one week if there is no improvement, as oral antibiotics may be required. If needed, an antifungal powder may be considered later to keep the area dry. He was also advised to finish the course of pills previously ordered. 2. Seizure Disorder The patient's seizure disorder is well-controlled, and he denies recent seizures. He reports night sweats occurring about once weekly. He will continue his current medications and vitamin D. Follow-up lab work is pending but not urgent, as prior results were not critically abnormal. 3. Follow-Up Care The patient will return for a follow-up visit in 4 months. This will allow time for him to complete his lab work before the next appointment, after which he can resume 6-month follow-up intervals. Discussion Notes I reviewed my findings of the patient's ear lesion with him, explaining that it appears to have a secondary bacterial infection. I prescribed mupirocin ointment and instructed him to apply it twice daily. I advised him to call in one week if there is no improvement, as oral antibiotics might be necessary. We discussed that if the lesion doesn't heal, we might consider using an antifungal powder to keep the area dry. We also confirmed that his seizures remain well-controlled and that he feels better on his current medication regimen. I reassured him that his pending lab work can be done at his convenience before the next visit. I have scheduled a follow-up appointment in four months. Patient Instructions - Apply the Mupirocin ointment to the sore on your ear two times a day. - Finish the pills that I previously prescribed for you. - If the sore is not getting better in one week, call the office as you might need oral antibiotics. - You can trim the hair around the sore to help a bandage stick better. - Continue taking your vitamin D supplement. - Please get your blood work done before your next visit. - Your next follow-up appointment is in 4 months. Medications: New mupirocin 2% 1 appl topical BID 22 grams 1RF
--- OUTSIDE RECORDS SUMMARY | 2025-11-11 13:07 | XMS_ITS | Clinical Summary ---
Author Organization [facility] Address [address] [place] [id number] Phone Care Team Providers Care Green Chainer Name Role Phone Kimberley Wilson MANAGING PARTNER Primary Care Provider [phone] Allergies Active Allergy Reactions Criticality Noted Date [...] Description 12/28/2025 11:30 AM EST Office Visit [facility] [address] [place] [address] [place] [address] Christiano Acosta MD [address] [place] [address], [address] [place] [address] 02/23/2026 3:00 PM EDT Office Visit [facility] [address] [place] [address] [place] [address] Doretha Garcia [address] [place] [address], [address] [place] [address] [email or web address] Health Maintenance Due Date Last Done Comments LIPID PANEL 1980 DEPRESSION SCREENING 1992 HEPATITIS C SCREENING 1998 HIV ONE-TIME SCREENING (18-6 5 YEARS) 1998 SMOKING STATUS SCREENING (On ce After 26 Yrs) 2006 INFLUENZA VACCINE (#1) 2025 09/11/2016 COVID-19 VACCINE (2024-2 6 season) 2025 07/31/2023, 06/22/2021, 05/25/2021 COLOGUARD 2025 COLONOSCOPY 2025 COLORECTAL CANCER SCREENING 2025 FIT TEST 2025 FOBT 2025 SIGMOIDOSCOPY 2025 VIRTUAL COLONOSCOPY 2025 SCREENING FOR DIABETES 08/28/2026 08/28/2023 Adult Td,Tdap [...] topic Medical Devices Not on file [facility] P[facility] [employer] CONNE[facility]ARE [facility] NON NSPG PCP SILVER [employer] CONNECTORCARE [employer] NON NSPG PCP SILVER CLARITY CONNE[employer]CARE [employer] NON NSPG PCP SILVER CLARITY CONNE[employer]CARE [employer] NON NSPG PCP SILVER [employer]ITY [employer]ARE [employer] NON NSPG PCP SILVER [employer] CONNECTORCARE Care Teams Green Chainer Relationship Specialty Start Date End Date Kimberley Wilson NP [address] [place] [id number] PCP - General Nurse Practitioner 10/02/25 Additional Source Comments The information contained in this document represents components of the legal health record. It is not the complete legal health record.[facility]
--- OUTSIDE RECORDS SUMMARY | 2025-11-11 13:07 | XMS_ITS | Clinical Summary ---
Author Organization [facility] Address [address] [place] [address] Phone Care Team Providers Care Biosolids Management Technician Name Role Phone Toby Edouard DO Primary Care Provider Allergies Active Allergy Reactions Criticality Noted Date Comments Lactose 07/09/2024 Medications LORazepam (ATIVAN) 0.5 mg tablet Sig 1 tab po prn seizure > 5 minutes, can repeat X1 in 24 hours 10/14/2024 Active B complex-vitamin C tablet Take 1 tablet by mouth 1 (one) time each day. 03/06/2025 03/06/20 26 Active Vitamin D3 25 mcg (1,000 unit) capsule Take 1 capsule (1,000 Units total) by mouth 1 (one) time each day. 05/12/2025 Active OXcarbazepine (TRILEPTAL) 600 mg tabletIndicatio ns:Seizure (CMS/HCC V24, CMS/HCC V28) Take 1 tablet (600 mg total) by mouth 1 (one) time each day in the morning AND 1.5 tablets (900 mg total) at bedtime. 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 270 each 3 08/18/2025 Active Active Problems Problem Noted Date Diagnosed Date Breakthrough seizure 03/02/2025 Seizure 02/20/2025 Encounters Date Type Department Care Team Description 10/27/2025 8:55 AM EST - 10/27/2025 11:59 PM EST Hospital Encounter [facility] Neurodiagnostic [address] [place] [phone] Discharge Disposition: Home or Self Care 10/26/2025 7:49 AM EST - 10/26/2025 11:59 PM EST Hospital Encounter [facility] Neurodiagnostic [address] [place] [phone] Discharge Disposition: Home or Self Care 10/22/2025 Lab Neurostroke - [place] [address] [place] [phone] Sigifredo Tim MD Unspecified convulsions ([facility]/HCC V24, CMS/HCC V28) 10/21/2025 Lab Neurostroke - [place] [address] [place] [phone] Sigifredo Tim MD Unspecified convulsions ([facility] V24, CMS/HCC V28) 10/19/2025 9:20 AM EST Lab Draw Station - [address] [employer] [address] [phone] Memory loss (Primary Dx) 10/13/2025 8:00 AM EST Office Visit Neurology [address] [place] [address] Sigifredo Tim MD Seizure (CMS/HCC V24, CMS/HCC V28) (Primary Dx); Memory change 08/18/2025 9:40 AM EDT Office Visit Neurology [address] [place] [address] Sigifredo Tim MD Seizure (CMS/HCC V24, CMS/HCC [...] Orientation Straight 03/02/2025 9: 47 AM EDT Last Filed Vital Signs Vital Sign Reading Time Taken Comments Blood Pressure 127/73 10/13/2025 8:06 AM EST Pulse 75 10/13/2025 8:06 AM EST Temperature 36.4 C (97.5 F) 05/19/2025 10:54 AM EDT Respiratory Rate 18 03/06/2025 7:48 AM EDT Oxygen Saturation 97% 05/19/2025 10:54 AM EDT Inhaled Oxygen Concentration - - Weight 85.3 kg (188 lb) 10/13/2025 8:06 AM EST Height 172.7 cm (5' 8 ) 05/19/2025 10:54 AM EDT Body Mass Index 28.59 05/19/2025 10:54 AM EDT Plan of Treatment Upcoming Encounters Date Type Department Care Team (Late st Contact Info) Description 12/01/2025 9:00 AM EST Office Visit [facility] [address] [employer] [address] [employer] [address] [place] [address] Jeimy Durand, [address] [phone] 03/09/2026 9:40 AM EDT Office Visit Neurology [address] [place] [phone] Sigifredo Tim MD [address] [place] [address] [place] [address] Health Maintenance Due Date Last Done Comments Colorectal Cancer Screening: Colonoscopy 1980 Drug Screen 1980 Non-Opioid Controlled Substance Agreement 1980 Hepatitis A Vaccines (1 of 2 - Risk 2-dose series) 1999 Hepatitis B Vaccines (1 of 3 - 19+ 3-dose series) 1999 HPV Vaccines (1 - 3-dose SCD M series) 2007 Depression Screening 11/26/2024 Cholesterol Screening (Lipid Panel) 12/22/2024 HIV Screening 12/22/2024 Hepatitis C Screening 12/22/2024 Social Influencers of Health Screening 12/22/2024 COVID-19 Vaccine (1 - 2024-2 6 season) 2025 Influenza Vaccine (#1) 2025 DTaP,Tdap,and [...] Diagnosis Comments CBC WITH AUTO DIFFERENTIAL Routine 10/19/2025 9:20 AM EST Memory loss VITAMIN B12 AND FOLATE Routine 9:20 AM EST Memory loss OXCARBAZEPINE LEVEL Routine 10/19/2025 9 :20 AM EST Memory loss COMPREHENSIVE METABOLIC PANEL Routine 10/19/2025 9:20 AM EST Memory loss CBC AND DIFFERENTIAL Routine 10/19/2025 9:20 AM EST Memory loss CBC WITH AUTO DIFFERENTIAL Routine 09/15/2025 9:01 AM EDT Seizure (CMS/HCC V24, CMS/HCC V28) CBC AND DIFFERENTIAL Routine 09/15/2025 9:01 AM EDT Seizure (CMS/HCC V24, CMS/HCC V28) COMPREHENSIVE METABOLIC PANEL Routine 09/15/2025 9:01 AM EDT Seizure (CMS/HCC V24, CMS/HCC V28) OXCARBAZEPINE LEVEL Routine 09/15/2025 9 :01 AM EDT Seizure (CMS/HCC V24, CMS/HCC V28) from Last 3 Months Results * Vitamin B12 and folate (10/19/2025 9:20 AM EST) Pathologist [facility] Vitamin B-12 817 211 - 911 pcg/mL 10/19/2025 4:14 PM EST [facility] Folate >24.0 >=5.4 ng/ml 10/19/2025 4:14 PM EST [facility] Comment:Over the counter sup plements containing high doses of biotin may interfere with this assay. If interference is suspected, patients shoud be retested after refraining from biotin supplements for 72 hours. Blood Venous blood specimen / Unknown Venipuncture / Unknown 10/19/2025 9:20 AM EST 10/19/2025 9:20 AM EST us Sigifredo Tim MD LAB BLOOD ORDERABLES Final Resu lt [facility] ([facility] [address] [place] [address], * (ABNORMAL) CBC auto differential (10/19/2025 9:20 AM EST) Only the most recent of2 resultswithin the time period is included. WBC 3.5(L) 4.8 - 10.8 K/mcL LAB HEMETOLOGY METHOD 10/19/2025 10:03 AM [facility] RBC 5.00 4.50 - 5.50 M/mcL LAB HEMETOLOGY METHOD 10/19/2025 10:03 AM [facility] Hemoglobin 14.5 13.5 - 17.5 g/dL LAB HEMETOLOGY METHOD 10/19/2025 10:03 AM [facility] Hematocrit 43.8 42.0 - 54.0 % LAB HEMETOLOGY METHOD 10/19/2025 10:03 AM [facility] MCV 87.3 79.0 - 98.0 FL LAB HEMETOLOGY METHOD 10/19/2025 10:03 AM [facility] MCH 28.9 27.0 - 32.0 pcg LAB HEMETOLOGY METHOD 10/19/2025 10:03 AM [facility] MCHC 33.1 32.0 - 37.0 g/dL LAB HEMETOLOGY METHOD 10/19/2025 10:03 AM [facility] RDW 12.9 11.0 - 15.0 % LAB HEMETOLOGY METHOD 10/19/2025 10:03 AM [facility] Platelets 234 130 - 400 K/mcL LAB HEMETOLOGY METHOD 10/19/2025 10:03 AM [facility] MPV 9.5 7.0 - 11.0 FL LAB HEMETOLOGY METHOD 10/19/2025 10:03 AM [facility] NRBC 0.0 <1.0 % LAB HEMETOLOGY METHOD 10/19/2025 10:03 AM [facility] NRBC Absolute 0.00 <0.10 K/mcL LAB HEMETOLOGY METHOD 10/19/2025 10:03 AM [facility] Neutrophils Relative 58.0 % LAB HEMETOLOGY METHOD 10/19/2025 10:03 AM [facility] Lymphocytes Relative 25.7 % LAB HEMETOLOGY METHOD 10/19/2025 10:03 AM [facility] Monocytes Relative 12.6 % LAB HEMETOLOGY METHOD 10/19/2025 10:03 AM [facility] Eosinophils Relative 2.3 % LAB HEMETOLOGY METHOD 10/19/2025 10:03 AM [facility] Basophils Relative 1.1 % LAB HEMETOLOGY METHOD 10/19/2025 10:03 AM [facility] Immature Granulocytes Relative 0.3 % LAB HEMETOLOGY METHOD 10/19/2025 10:03 AM [facility] Neutrophils Absolute 2.03 1.50 - 7.00 K/mcL LAB HEMETOLOGY METHOD 10/19/2025 10:03 AM [facility] Lymphocytes Absolute 0.90(L) 1.00 - 5.00 K/mcL LAB HEMETOLOGY METHOD 10/19/2025 10:03 AM [facility] Monocytes Absolute 0.44 0.20 - 1.00 K/mcL LAB HEMETOLOGY METHOD 10/19/2025 10:03 AM [facility] Eosinophils Absolute 0.08 0.00 - 0.50 K/mcL LAB HEMETOLOGY METHOD 10/19/2025 10:03 AM [facility] Basophils Absolute 0.04 0.00 - 0.20 K/mcL LAB HEMETOLOGY METHOD 10/19/2025 10:03 AM [facility] Immature Granulocytes Absolute 0.01 0.00 - 0.03 K/mcL LAB HEMETOLOGY METHOD 10/19/2025 10:03 AM [facility] Blood Venous blood specimen / Unknown Venipuncture / Unknown 10/19/2025 9:20 AM EST 10/19/2025 9:20 AM EST Sigifredo Tim MD LAB BLOOD ORDERABLES Final Resu lt Performing Organization Address City/[facility]/ZIP Co de Phone Number [facility] [address] [place] [address], * Oxcarbazepine level (10/19/2025 9:20 AM EST) Only the most recent of2 resultswithin the time period is included. Oxcarbazepine 20.7 10 - 35 ug/mL 10/21/2025 11:17 AM EST [facility] Comment: If applicable, any drug confirmation testing reported here was developed and the performance characteristics determined by [facility]. This confirmation testing has not been cleared or approved by the FDA. The laboratory is regulated under CLIA as qualified to perform high-complexity testing. This test is used for patient testing purposes. It should not be regarded as investigational or for research. Test performed at [facility], [address] , [place] [address] Jonna Cordon MD, PhD - Weight Calculator Blood Venous blood specimen / Unknown Venipuncture / Unknown 10/19/2025 9:20 AM EST 10/19/2025 9:20 AM EST Sigifredo Tim MD LAB BLOOD ORDERABLES Final Resu lt Performing Organization Address City/[facility]/ZIP Co de Phone Number [facility] [address] [place] [address] * Comprehensive metabolic panel (10/19/2025 9:20 AM EST) Only the most recent of2 resultswithin the time period is included. Sodium 143 133 - 145 mmol/L 10/19/2025 4:15 PM EST [facility] Potassium 4.1 3.5 - 5.5 mmol/L 10/19/2025 4:15 PM EST [facility] Chloride 108 96 - 110 mmol/L 10/19/2025 4:15 PM EST [facility] CO2 26 21 - 32 mmol/L 10/19/2025 4:15 PM [facility] Anion Gap 9 3 - 11 10/19/2025 4:15 PM [facility] Glucose 85 70 - 100 mg/dL 10/19/2025 4:15 PM [facility] BUN 11 5 - 25 mg/dL 10/19/2025 4:15 PM [facility] Creatinine 1.11 0.70 - 1.30 mg/dL 10/19/2025 4:15 PM [facility] eGFR 83 >=60 mL/min/1. 73m2 10/19/2025 4:15 PM [facility] Comment:Calculation based on the Chronic Kidney Disease Epidemiology Collaboration (CKD-EPI) equation refit without adjustment for race. BUN/Creatinine Ratio 9.9 10/19/2025 4:15 PM [facility] Calcium 8.9 8.5 - 10.5 mg/dL 10/19/2025 4:15 PM [facility] AST (SGOT) 23 10 - 42 unit/L 10/19/2025 4:15 PM [facility] ALT (SGPT) 23 10 - 60 unit/L 10/19/2025 4:15 PM [facility] Alkaline Phosphatase 76 42 - 121 unit/L 10/19/2025 4:15 PM [facility] Total Protein 6.7 6.0 - 8.0 g/dL 10/19/2025 4:15 PM [facility] Albumin 4.3 3.2 - 5.0 g/dL 10/19/2025 4:15 PM [facility] Total Bilirubin 0.6 0.0 - 1.4 mg/dL 10/19/2025 4:15 PM [facility] Blood Venous blood specimen / Unknown Venipuncture / Unknown 10/19/2025 9:20 AM EST 10/19/2025 9:20 AM EST us Sigifredo Tim MD LAB BLOOD ORDERABLES Final Resu lt [facility] ([facility] [place] [address] [place] [address], [place] [phone] from Last 3 Months Insurance [facility] [place] [address] Advance Directives * Full Code - Confirmed (Latest Code Status on File) Date Activated Date Inactivated Comments 03/02/2025 10:36 AM 03/06/2025 3:[address] atus was ascertained in the following way: Code status discussion: discussion with patient To update the patient's code status, place a code status order. Do not modify or discontinue any currently active code status orders. Care Teams Biosolids Management Technician Relationship Specialty Start Date End Date Toby Edouard DO [address] [place] [address] [address] [facility] [place] [address] PCP - General Internal Medicine 12/22/24
--- OUTSIDE RECORDS SUMMARY | 2025-11-11 13:08 | XMS_ITS | Clinical Summary ---
Author Organization [facility] Address [address] [facility] [address] [place] [address] Care Team Providers Care Brazer Induction Name Role Phone Jeff Odom MD Primary Care Provider [phone] Allergies Active Allergy Reactions Criticality Noted Date [...] you are drinking? Patient does not drink 11/06/202 3 Q3: How often do you have si [...] Health Maintenance Due Date Last Done Comments CT Colonography 1980 Colonoscopy 1980 Colorectal Cancer Screening 1980 FIT-DNA 1980 FIT 1980 FOBT 1980 HIV Screening 1980 Lipid Panel 1980 Sigmoidoscopy 1980 MMR Vaccines (1 of 1 - Standard series) 1981 Hepatitis C Screening 1998 Hepatitis A Vaccines (1 of 2 - Risk 2-dose series) 1999 Hepatitis B Vaccines (1 of 3 - 19+ 3-dose series) 1999 Depression Screening 11/26/2024 COVID-19 Vaccine (4 - 2024-2 6 season) 2025 07/31/2023, 06/22/2021, 05/25/2021 Influenza Vaccine (#1) 2025 09/11/2016 Diabetes Screening 11/14/2025 11/14/2022 DTaP/Tdap/Td Vaccines (3 - T d or Tdap) 07/09/2034 07/09/2024, 09/11/2016 HIB Vaccines Aged Out No longer eligi ble based on patient's age to complete this topic HPV Vaccines (No Doses Required) Completed IPV Vaccines Aged Out No longer eligi [...] - 139 mg/dL 11/14/2022 6:12 PM EST [facility] Fasting? Unknown [facility] 11/14/2022 6:12 PM EST [facility] Blood Venous blood specimen / Unknown Venipuncture / Unknown 11/14/2022 3:35 PM EST 11/14/2022 4:27 PM EST us Carlos Urbano ENGLISH LANGUAGE LEARNER TUTOR LAB BLOOD ORDERABLES Final Resul t [facility] [address] [place] [address], from Last 3 Months or Most Recently Relevant to Health Maintenance Advance Directives * Full Code (Latest Code Status on File) Date Activated Date Inactivated Comments 10/01/2023 4:46 PM 10/04/2023 6:44 PM Care Teams Brazer Induction Relationship Specialty Start Date End Date Jeff Odom MD [address] [place] [address] [address] [place] [address] PCP - General Resource Forester 09/26/22
--- OUTSIDE RECORDS SUMMARY | 2025-11-11 13:08 | XMS_ITS ---
Author Organization [facility] Address [address] [place] [address] Phone Care Team Providers Care Medical Assistant Secretary Name Role Phone Toby Edouard DO Primary Care Provider Transitional Care Management Status:Identified (Enrolling) Start date:03/09/2025 Related social drivers of health:Housing Instability, Food Access & Nutrition, Access to Healthcare, TH Health Literacy, Financial Risk, Transportation, Social Isolation, Food Risk Case Team Name Relationship Phone Cheri Tim MA(Responsible Staff) Continued Care and Services Coordination
== END 2025-11-11 11:14 | disposition home or self-care (01) ==
LOC: HO.HMCH 10:31
DX: F41.9 Anxiety disorder, unspecified (principal); R56.9 Unspecified convulsions; R00.1 Bradycardia, unspecified; E78.00 Pure hypercholesterolemia, unspecified; R73.9 Hyperglycemia, unspecified; E55.9 Vitamin D deficiency, unspecified; A60.02 Herpesviral infection of other male genital organs

== ENCOUNTER → 2025-11-11 10:30 | Outpatient (BNVA) | payer OTHER, SELFPAY | DX: A60.02 Herpesviral infection of other male genital organs (principal); R00.1 Bradycardia, unspecified; G40.909 Epilepsy, unspecified, not intractable, without status epilepticus; L98.9 Disorder of the skin and subcutaneous tissue, unspecified; F41.9 Anxiety disorder, unspecified; E78.00 Pure hypercholesterolemia, unspecified; R73.9 Hyperglycemia, unspecified; E55.9 Vitamin D deficiency, unspecified | CPT/HCPCS: 99212 ==